=== PATIENT | male | born 1940 | race Caucasian/White ===

== ENCOUNTER → 2017-08-07 14:42 | Outpatient (CLI) | payer MEDICARE, SELFPAY ==
--- NOTE | 2017-08-07 | DI.RAD.S_ITS ---
PROCEDURE: XR CHEST 2V INDICATIONS: PNEUMONIA TECHNIQUE: 2 views of the chest were acquired. COMPARISON: None. FINDINGS: Surgical changes and devices: None. Lungs and pleura: No pleural effusions or pneumothorax. Increased right perihilar consolidative opacities are present. Patchy left basilar retrocardiac opacities. Mediastinum: Mediastinal contours are normal. Heart size is normal. Bones and chest wall: No suspicious bony abnormalities. Soft tissues appear unremarkable. IMPRESSION: Right perihilar pneumonia. Additional patchy opacities in the left lung base. Recommend radiographic followup to document resolution after treatment and to exclude hilar lymphadenopathy/neoplasm Dictated by: Rod Queen M.D. on 08/07/2017 at 15:29 Approved by: Rod Queen M.D. on 08/07/2017 at 15:31
== END ==
PROVIDERS: Visit Provider Nurse Practitioner Family
DX: J18.9 Pneumonia, unspecified organism (principal)
CPT/HCPCS: 71046

== ENCOUNTER → 2017-08-14 13:46 | Outpatient (CLI) | payer MEDICARE, SELFPAY ==
--- NOTE | 2017-08-14 | DI.RAD.S_ITS ---
PROCEDURE: XR CHEST 2V INDICATIONS: 77-year-old male with pneumonia. TECHNIQUE: 2 views of the chest were acquired. COMPARISON: [facility], CR, XR CHEST 2V, 08/07/2017, 14:34. FINDINGS: Surgical changes and devices: None. Lungs and pleura: No pleural effusions or pneumothorax. There is persistent airspace opacity involving the superior segment of the right lower lobe. Left lung remains clear. Mediastinum: Mediastinal contours are normal. Heart size is normal. Bones and chest wall: No suspicious bony abnormalities. Soft tissues appear unremarkable. IMPRESSION: Findings consistent with persistent pneumonia involving the superior segment of the right lower lobe. If this finding does not resolve on short-term followup chest radiographs, consider further evaluation with contrast-enhanced chest CT to evaluate for underlying lung or hilar mass. Dictated by: Nirav Bonilla M.D. on 08/14/2017 at 14:12 Approved by: Nirav Bonilla M.D. on 08/14/2017 at 14:15
== END ==
PROVIDERS: Visit Provider Nurse Practitioner Family
DX: J18.9 Pneumonia, unspecified organism (principal)
CPT/HCPCS: 71046

== ENCOUNTER → 2017-08-28 11:35 | Outpatient (CLI) | payer MEDICARE, SELFPAY ==
--- NOTE | 2017-08-28 | DI.RAD.S_ITS ---
PROCEDURE: XR CHEST 2V INDICATIONS: 77-year-old male with pneumonia symptoms after antibiotics. TECHNIQUE: 2 views of the chest were acquired. COMPARISON: [facility], CR, XR CHEST 2V, 08/14/2017, 13:37. [facility], CR, XR CHEST 2V, 08/07/2017, 14:34. FINDINGS: Surgical changes and devices: None. Lungs and pleura: No pleural effusions or pneumothorax. Asymmetric right perihilar opacity persists, as well as opacity involving the superior segment of the right lower lobe. Left lung remains clear. Mediastinum: Mediastinal contours are normal. Heart size is normal. Bones and chest wall: No suspicious bony abnormalities. Soft tissues appear unremarkable. IMPRESSION: Radiographic abnormalities involving the right perihilar region and superior segment of the right lower lobe have not yet completely resolved. As such, underlying neoplasm is a possibility, as well as residual pneumonia. Dictated by: Nirav Bonilla M.D. on 08/28/2017 at 12:02 Approved by: Nirav Bonilla M.D. on 08/28/2017 at 12:04
== END ==
PROVIDERS: Visit Provider Nurse Practitioner Family
DX: J15.9 Unspecified bacterial pneumonia (principal)
CPT/HCPCS: 71046

== ENCOUNTER → 2018-02-02 14:37 | Outpatient (CLI) | payer MEDICARE, SELFPAY ==
--- NOTE | 2018-02-02 | DI.RAD.S_ITS ---
PROCEDURE: XR CHEST 2V INDICATIONS: PNEUMONIA TECHNIQUE: 2 views of the chest were acquired. COMPARISON: [facility], CR, XR CHEST 2V, 08/07/2017, 14:34. [facility], CR, XR CHEST 2V, 08/14/2017, 13:37. [facility], CR, XR CHEST 2V, 08/28/2017, 11:25. FINDINGS: Surgical changes and devices: None. Lungs and pleura: No pleural effusions or pneumothorax. Abnormal suprahilar density can be seen on the right, which is not significantly changed compared to the prior chest radiograph dated 08/28/17. No focal infiltrates are seen. Mediastinum: Mediastinal contours are normal. Heart size is normal. Bones and chest wall: No suspicious bony abnormalities. Soft tissues appear unremarkable. IMPRESSION: The persistence of the right suprahilar opacity is highly worrisome for neoplasm. Please consider a dedicated chest CT with contrast for further evaluation Dictated by: Pepito Mack M.D. on 02/02/2018 at 16:03 Approved by: Pepito Mack M.D. on 02/02/2018 at 16:05
== END ==
PROVIDERS: Visit Provider Nurse Practitioner Family
DX: J18.9 Pneumonia, unspecified organism (principal)
CPT/HCPCS: 71046

== ENCOUNTER 2018-03-05 12:55 | Emergency (ER) | payer MEDICARE, SELFPAY ==
[2018-03-05] VITALS (14 sets, daily range): BP systolic 131–152; BP diastolic 71–94; PULSE 100–124; RESP 13–23; TEMP 36.5–36.8; O2SAT 96–100
--- NOTE | 2018-03-05 13:00 | ED.LOWEXIN ---
HPI - Extremity Injury (Lower) <TESSY Flores - Last Filed: 03/05/18 22:31> General Chief Complaint: Extremity Injury, Lower Stated Complaint: Hip/Leg Pain Time Seen by Provider: 03/05/18 13:00 Source: patient Mode of arrival: EMS Limitations: no limitations History of Present Illness HPI Narrative: 78-year-old male with history of hypertension and osteoarthritis that is a nonsmoker here for complaint of pain into his room left hip area over the past couple of days. He reports he has had pain and on and off over the past several weeks. Pain got so worse today that he could not get out of bed. He was brought in by ambulance due to him not being able to get out of bed. He denies any falls. He denies any trauma to the left hip area. Reports increased pain with motion of the left hip area. He has been treated for pain into his left knee area by Orthopedics he reports that he recently received a cortisone shot to his left knee several weeks ago and this has helped his knee pain. He denies any fevers or chills. He denies any other current concerns or complaints at this timeframe. Related Data Home Medications Medication Instructions Recorded Confirmed allopurinol 100 mg PO DAILY 03/05/18 03/05/18 atenolol 50 mg PO DAILY 03/05/18 03/05/18 calcitriol 0.25 mcg PO DAILY 03/05/18 03/05/18 levothyroxine [Synthroid] 75 mcg PO DAILY 03/05/18 03/05/18 potassium chloride 20 meq PO DAILY 03/05/18 03/05/18 Allergies Allergy/AdvReac Type Severity Reaction Status Date / Time No Known Drug Allergies Allergy Verified 03/05/18 15:58 Review of Systems <TESSY Flores - Last Filed: 03/05/18 22:31> Constitutional Denies chills, Denies fever(s), Denies lethargy and Denies weakness Eyes Denies change in vision, Denies eye discharge, Denies irritation and Denies loss of vision ENT Ears, Nose, Mouth, and Throat: Denies change in voice, Denies neck pain and Denies sore throat Cardiovascular Denies chest pain, Denies irregular heart rhythm, Denies lightheadedness, Denies palpitations, Denies dyspnea, Denies dyspnea on exertion and Denies orthopnea Respiratory Denies cough, Denies dyspnea, Denies dyspnea on exertion and Denies wheezing Gastrointestinal Gastrointestinal: Denies abdominal pain, Denies change in bowel habits, Denies diarrhea, Denies nausea and Denies vomiting Genitourinary Denies hematuria, Denies flank pain, Denies urinary incontinence and Denies urinary urgency Musculoskeletal Denies neck pain Comments: Left hip pain Integumentary/Breasts Denies pruritus, Denies erythema, Denies rash and Denies wounds Neurologic Denies confusion, Denies loss of vision and Denies weakness Psychiatric Denies anxiety, Denies confusion, Denies depression, Denies homicidal ideation and Denies suicidal ideation Endocrine Denies palpitations Hematologic/Lymphatic Denies easy bruising Allergic/Immunologic Denies wheezing Exam <TESSY Flores - Last Filed: 03/05/18 22:31> Initial Vital Signs Initial Vital Signs: Vital Signs Temperature 97.7 F 03/05/18 13:03 Pulse Rate 122 H 03/05/18 13:03 Respiratory Rate 20 03/05/18 13:03 Blood Pressure 146/94 H 03/05/18 13:03 Pulse Oximetry 98 03/05/18 13:03 Const General: cooperative and well developed Nutritional Appearance: well nourished Orientation: alert, awake, oriented x3 and not confused [facility] Mouth: oral mucosae normal, oropharynx normal and No moist mucous membranes Eyes Conjunctivae: conjunctivae normal Sclera: sclerae normal Pupils: PERRL EOM: EOM intact bilaterally Resp Effort & Inspection: normal respiratory effort, able to speak in complete sentences, no respiratory distress and no use of accessory muscles Auscultation: clear to auscultation bilaterally, no rales, no rhonchi and no wheezes Cardio Rate: regular rate Rhythm: regular rhythm Heart Sounds: no click, no gallops, no murmurs and no rubs Pulses: normal peripheral pulses GI Inspection: non-distended Palpation: soft, no hepatosplenomegaly, No guarding, No pulsatile mass and No tender Auscultation: normal bowel sounds Skin General: no rashes or lesions noted, No jaundice and No petechiae Neuro General: alert, oriented x3, gait normal and no focal motor deficits Speech: speech normal Extrem Other: Left hip area with no signs of trauma. No ecchymosis. No swelling. Distal sensation is intact. Distal range of motion is intact. Distal pulses are intact. <Maryjo Levy DO - Last Filed: 03/06/18 17:09> Initial Vital Signs Initial Vital Signs: Vital Signs Temperature 97.7 F 03/05/18 13:03 Pulse Rate 122 H 03/05/18 13:03 Respiratory Rate 20 03/05/18 13:03 Blood Pressure 146/94 H 03/05/18 13:03 Pulse Oximetry 98 03/05/18 13:03 Course <TESSY Flores - Last Filed: 03/05/18 22:31> Orders Ordered: Discontinued Medications Hydromorphone HCl (Dilaudid) 1 mg IV NOW ONE Stop: 03/05/18 14:51 Last Admin: 03/05/18 14:56 Dose: 1 mg Hydromorphone HCl (Dilaudid) 0.5 mg IV NOW ONE Stop: 03/05/18 17:12 Last Admin: 03/05/18 17:16 Dose: 0.5 mg Hydromorphone HCl (Dilaudid) 0.5 mg IV NOW ONE Stop: 03/05/18 19:48 Last Admin: 03/05/18 19:58 Dose: 0.5 mg Hydromorphone HCl (Dilaudid) 0.5 mg IV NOW ONE Stop: 03/05/18 22:45 Last Admin: 03/05/18 23:22 Dose: 0.5 mg Sodium Chloride (Normal Saline 0.9%) 1,000 mls @ 1,000 mls/hr IV BOLUS ONE Stop: 03/05/18 14:16 Last Infusion: 03/05/18 15:32 Dose: 0 mls/hr Admin: 03/05/18 14:10 Dose: 1,000 mls/hr Sodium Chloride (Normal Saline 0.9%) 1,000 mls @ 1,000 mls/hr IV BOLUS ONE Stop: 03/05/18 16:55 Last Infusion: 03/05/18 17:35 Dose: 0 mls/hr Admin: 03/05/18 15:57 Dose: 1,000 mls/hr Sodium Chloride (Normal Saline 0.9%) 1,000 mls @ 100 mls/hr IV CONT KELSEY Last Infusion: 03/05/18 23:40 Dose: 100 mls/hr Admin: 03/05/18 20:15 Dose: 100 mls/hr Sodium Chloride (Normal Saline 0.9%) 1,000 mls @ 100 mls/hr IV CONT KELSEY Last Admin: 03/05/18 22:46 Dose: Vital Signs - 8 hr 03/05/18 14:30 03/05/18 15:11 03/05/18 15:36 Pulse Rate 105 H 106 H 108 H Respiratory Rate 13 14 23 Blood Pressure [Right Arm] 151/84 H 152/82 H 139/76 Pulse Oximetry 100 96 96 03/05/18 16:54 03/05/18 17:39 03/05/18 18:00 Pulse Rate 110 H 115 H 115 H Respiratory Rate 17 18 17 Blood Pressure [Right Arm] 149/81 H 131/71 146/94 H Pulse Oximetry 100 98 99 03/05/18 19:37 03/05/18 20:41 03/05/18 21:35 Pulse Rate 116 H 120 H 117 H Respiratory Rate 18 17 16 Blood Pressure [Right Arm] 151/89 H 148/91 H 144/92 H Pulse Oximetry 98 98 98 <Maryjo Levy, - Last Filed: 03/06/18 17:09> Orders Ordered: Discontinued Medications Hydromorphone HCl (Dilaudid) 1 mg IV NOW ONE Stop: 03/05/18 14:51 Last Admin: 03/05/18 14:56 Dose: 1 mg Hydromorphone HCl (Dilaudid) 0.5 mg IV NOW ONE Stop: 03/05/18 17:12 Last Admin: 03/05/18 17:16 Dose: 0.5 mg Hydromorphone HCl (Dilaudid) 0.5 mg IV NOW ONE Stop: 03/05/18 19:48 Last Admin: 03/05/18 19:58 Dose: 0.5 mg Hydromorphone HCl (Dilaudid) 0.5 mg IV NOW ONE Stop: 03/05/18 22:45 Last Admin: 03/05/18 23:22 Dose: 0.5 mg Sodium Chloride (Normal Saline 0.9%) 1,000 mls @ 1,000 mls/hr IV BOLUS ONE Stop: 03/05/18 14:16 Last Infusion: 03/05/18 15:32 Dose: 0 mls/hr Admin: 03/05/18 14:10 Dose: 1,000 mls/hr Sodium Chloride (Normal Saline 0.9%) 1,000 mls @ 1,000 mls/hr IV BOLUS ONE Stop: 03/05/18 16:55 Last Infusion: 03/05/18 17:35 Dose: 0 mls/hr Admin: 03/05/18 15:57 Dose: 1,000 mls/hr Sodium Chloride (Normal Saline 0.9%) 1,000 mls @ 100 mls/hr IV CONT KELSEY Last Infusion: 03/05/18 23:40 Dose: 100 mls/hr Admin: 03/05/18 20:15 Dose: 100 mls/hr Sodium Chloride (Normal Saline 0.9%) 1,000 mls @ 100 mls/hr IV CONT KELSEY Last Admin: 03/05/18 22:46 Dose: Vital Signs - 8 hr 03/05/18 14:30 03/05/18 15:11 03/05/18 15:36 Pulse Rate 105 H 106 H 108 H Respiratory Rate 13 14 23 Blood Pressure [Right Arm] 151/84 H 152/82 H 139/76 Pulse Oximetry 100 96 96 03/05/18 16:54 03/05/18 17:39 03/05/18 18:00 Pulse Rate 110 H 115 H 115 H Respiratory Rate 17 18 17 Blood Pressure [Right Arm] 149/81 H 131/71 146/94 H Pulse Oximetry 100 98 99 03/05/18 19:37 03/05/18 20:41 03/05/18 21:35 Pulse Rate 116 H 120 H 117 H Respiratory Rate 18 17 16 Blood Pressure [Right Arm] 151/89 H 148/91 H 144/92 H Pulse Oximetry 98 98 98 MDM - Extremity Injury (Lower) <TESSY Flores - Last Filed: 03/05/18 22:31> Lab Data Result diagrams: 03/05/18 15:27 03/05/18 15:27 Lab Results 03/05/18 03/05/18 03/05/18 Range/Units 15:27 15:27 15:27 WBC 18.3 H (4.5-11.0) X10^3/uL RBC 4.21 L (4.5-5.9) X10^6/uL Hgb 12.8 L (13.5-17.5) g/dL Hct 37.4 L (41-53) % MCV 88.7 (80-100) fL MCH 30.5 (26-34) PG MCHC 34.4 (30-36) % RDW 14.3 (11.6-14.8) % Plt Count 378 (150-400) X10^3/uL Neut % (Auto) 92.5 H (50-75) % Lymph % (Auto) 2.8 L (25-40) % Lasalle % (Auto) 4.1 (3-14) % Eos % (Auto) 0.4 L (2-4) % Baso % (Auto) 0.2 (0-2) % Neut # (Auto) 69579 H (3920-7949) /uL ESR 74 H (0-15) MM/HR Sodium 139 (137-145) mmol/L Potassium 3.9 (3.4-5.1) mmol/L Chloride 101 (98-107) mmol/L Carbon Dioxide 24 (22-32) mmol/L BUN 23 H (9-20) mg/dL Creatinine 1.50 H (0.66-1.25) mg/dL Estimated GFR 45.4 L (>60) mL/min BUN/Creatinine Ratio 15.3 (6-22) Glucose 140 H (80-110) mg/dL Lactate (0.7-2.1) mmol/L Uric Acid 5.4 (3.5-8.5) mg/dL Calcium 10.0 (8.4-10.2) mg/dL Total Bilirubin 0.8 (0.2-1.3) mg/dL AST 20 (17-59) IU/L ALT 22 (21-72) IU/L Alkaline Phosphatase 64 (38-126) U/L C-Reactive Protein 6.4 H (<1.0) mg/dL Total Protein 6.3 (6.3-8.2) g/dL Albumin 3.3 L (3.5-5.0) g/dL Globulin 3.0 (1.7-4.1) g/dL Albumin/Globulin Ratio 1.1 (1.0-2.8) Procalcitonin 0.17 (<0.5) ng/mL 03/05/18 Range/Units 15:27 WBC (4.5-11.0) X10^3/uL RBC (4.5-5.9) X10^6/uL Hgb (13.5-17.5) g/dL Hct (41-53) % MCV (80-100) fL MCH (26-34) PG MCHC (30-36) % RDW (11.6-14.8) % Plt Count (150-400) X10^3/uL Neut % (Auto) (50-75) % Lymph % (Auto) (25-40) % Lasalle % (Auto) (3-14) % Eos % (Auto) (2-4) % Baso % (Auto) (0-2) % Neut # (Auto) (1319-2929) /uL ESR (0-15) MM/HR Sodium (137-145) mmol/L Potassium (3.4-5.1) mmol/L Chloride (98-107) mmol/L Carbon Dioxide (22-32) mmol/L BUN (9-20) mg/dL Creatinine (0.66-1.25) mg/dL Estimated GFR (>60) mL/min BUN/Creatinine Ratio (6-22) Glucose (80-110) mg/dL Lactate 1.1 (0.7-2.1) mmol/L Uric Acid (3.5-8.5) mg/dL Calcium (8.4-10.2) mg/dL Total Bilirubin (0.2-1.3) mg/dL AST (17-59) IU/L ALT (21-72) IU/L Alkaline Phosphatase (38-126) U/L C-Reactive Protein (<1.0) mg/dL Total Protein (6.3-8.2) g/dL Albumin (3.5-5.0) g/dL Globulin (1.7-4.1) g/dL Albumin/Globulin Ratio (1.0-2.8) Procalcitonin (<0.5) ng/mL Imaging Data Left hip x-ray : Radiologist's impression: [address] [address] XRay Report Signed Patient: Avtar Walters MR#: [id number] : 1940 Acct:[id number] Age/Sex: 78 / M Date of Service: 03/05/18 Loc: ED Accession Number: [id number] Procedure: XR hip w pel if done LT 2V Ordering Provider: Candido Vazquez PROCEDURE: XR HIP W PEL IF DONE LT 2V INDICATIONS: LEFT HIP AND LEG PAIN TECHNIQUE: AP pelvis with lateral view(s) of the left hip(s). COMPARISON: None. FINDINGS: Bones: Moderate to severe bilateral hip joint osteoarthritic changes are seen. Left hip is internally rotated, which obscures the evaluation of left femoral neck. No definite displaced fractures or dislocations. Pelvic ring appears intact. No suspicious bony lesions. Soft tissues: The visualized bowel gas pattern is normal. No suspicious soft tissue calcifications. IMPRESSION: Slightly limited evaluation of left femoral neck due to to internal hip rotation. Moderate bilateral hip joint osteoarthritis. No definite fracture is seen. If clinically indicated, CT of left hip can be done for further evaluation. Dictated by: Jun Snyder M.D. on 03/05/2018 at 13:51 Approved by: Jun Snyder M.D. on 03/05/2018 at 13:52 Venous US: Radiologist's impression: [place] [address] Ultrasound Report Signed Patient: Avtar Walters MR#: [id number] : 1940 Acct:[id number] Age/Sex: 78 / M Date of Service: 03/05/18 Loc: ED Accession Number: [id number] Procedure: US periph venous low extrem lt Ordering Provider: Candido Vazquez PROCEDURE: US PERIPH VENOUS LOW EXTREM LT INDICATIONS: PAIN TECHNIQUE: Real-time imaging, as well as color and pulse Doppler interrogation, were performed of the lower extremity deep veins from the inguinal ligament to the popliteal fossa. COMPARISON: None. FINDINGS: The deep veins are normally compressible, and free of intraluminal thrombus. Color and pulse Doppler demonstrate normal phasic intraluminal flow. There is normal augmentation response to distal compression maneuver. There appears to be calcification along the posterior aspect of the left knee, which probably represents a joint body within a Noonan cyst. IMPRESSION: 1. No evidence of deep vein thrombosis involving the left lower extremity. 2. 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 Dictated by: Pola Moore M.D. on 03/05/2018 at 13:11 Approved by: Pola Moore M.D. on 03/05/2018 at 13:13 CT scan - pelvis: Radiologist's impression: [address] [address] [address] Scan Report Signed Patient: Avtar Walters MR#: [id number] : 1940 Acct:[id number] Age/Sex: 78 / M Date of Service: 03/05/18 Loc: ED Accession Number: [id number] Procedure: CT pelvis wo con Ordering Provider: Candido Vazquez PROCEDURE: CT PEL WO CON INDICATIONS: Left thigh left hip pain TECHNIQUE: Noncontrast 3 mm axial sections acquired through the bony pelvis, with coronal and sagittal reformatting. COMPARISON: None. FINDINGS: Image quality: Excellent. Bones: There is an acute-appearing nondisplaced fracture through distal left femoral neck with fracture line extending to involve lesser trochanter. Multiple area of well-circumscribed radiolucency is seen scattered in left femoral neck and proximal left femoral shaft with the largest area measures 3.6 x 3 x 4.9 cm in its largest AP, transverse, and craniocaudal dimensions involving inferior aspect of left femoral neck/intertrochanteric region. Finding is suspicious for pathologic fracture involving left femoral neck. Osteoarthritic changes are noted in bilateral hip joints. No other area of suspicious bony lesion is seen. No evidence of avascular necrosis of femoral head. Bilateral sacroiliac joint osteophytic changes also seen. Soft tissues: Soft tissue swelling around left femoral neck fracture site is noted. No significant joint effusion is seen. No gross left hip muscle or tendon abnormality is noted. Enlarged prostate gland is noted with mass effect on floor of urinary bladder. Small bilateral bladder wall diverticuli are seen. No discrete bladder wall mass. There is no pelvic free fluid or free air. No abnormal bowel wall thickening. No pelvic adenopathy. IMPRESSION: 1. Suggestion of a nondisplaced pathologic fracture through distal left femoral neck with multiple lytic lesions scattered in left femoral neck and proximal femoral shaft. 2. Osteoarthritic changes in bilateral hip joints and sacroiliac joints. No evidence of avascular necrosis. 3. 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 Dictated by: Jun Snyder M.D. on 03/05/2018 at 15:14 Approved by: Jun Snyder M.D. on 03/05/2018 at 15:27 CT scan - chest: Radiologist's impression: [address] [place] [address] [id number] [address] Scan Report Signed Patient: Avtar Walters MR#: [id number] : 1940 Acct:[id number] Age/Sex: 78 / M Date of Service: 03/05/18 Loc: ED Accession Number: [id number] Procedure: CT chest abdomen w con Ordering Provider: Candido Vazquez PROCEDURE: CT CHEST ABDOMEN W CON INDICATIONS: Findings suspicious for tumor to the left hip area on CT TECHNIQUE: After the administration of intravenous contrast, 5 mm thick sections acquired from the lung apices to the iliac crests. 5 mm coronal and sagittal reformats were performed, with additional 7 mm coronal MIP reformats through the lungs. For radiation dose reduction, the following was used: automated exposure control, adjustment of mA and/or kV according to patient size. COMPARISON: [facility], CT, CT PEL WO CON, 03/05/2018, 14:49. [facility], CR, XR HIP W PEL IF DONE LT 2V, 03/05/2018, 13:27. FINDINGS: Image quality: Excellent. CHEST: Lungs and pleura: A there is a large malignant appearing mass at the right perihilar lung parenchyma, a measuring up to 3.6 cm AP and 4.8 cm transverse, with direct invasion by tumor into the posterior mediastinum at the subcarinal space, and encasing the right mainstem bronchus and narrowing the bronchus, producing irregularity along the bronchial margin suspicious for endobronchial invasion. There is a cavitary appearance to the central portion of the mass where a small central air-filled space does not appear to communicate with the adjacent bronchi. No left-sided pleural effusions or pneumothorax bilaterally but there is a exudative appearing right pleural effusion showing a subtle pattern of rim enhancement and thickening, [id number] in overall size. There are at least 2 and possibly 3 malignant appearing left lower lung lesions, the largest of which is seen on series 2 image 44 at the posterolateral left lower lobe measuring slightly over 1 cm. This has spiculations.. Central and peripheral airways appear patent and normal in caliber. Mediastinum: Heart size is normal. No pericardial effusion. No mediastinal or hilar adenopathy by size criteria. Thoracic aorta and central pulmonary arteries are normal in size. Esophagus is normal in caliber. No hiatal hernia. Chest wall: No axillary or supraclavicular adenopathy by size criteria. Thyroid gland appears normal by CT criteria. ABDOMEN: Solid organs: Liver is normal in size and enhancement. Gallbladder appears free of inflammation but contains densely calcified dependent layering gallstones. Biliary system is non dilated. Pancreas enhances normally. Spleen is normal in size and enhancement. No adrenal nodules. Kidneys demonstrate normal size and enhancement, but with bilateral moderately severe hydronephrosis and hydroureter extending to the bladder level. Peritoneum and bowel: Bowel loops demonstrate normal wall thickness and caliber. No free fluid or air. Nodes and vessels: No retroperitoneal or mesenteric adenopathy by size criteria. Aorta and inferior vena cava are normal in size. Bones: No suspicious bony lesions. No vertebral body compression fractures. Miscellaneous: No ventral hernias. IMPRESSION: 1. 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 A bronchoscopic biopsy may be the appropriate next step, however the pleural effusion present appears slightly exudative and thoracentesis for cytology may be warranted initially. Suspect at least 2 pulmonary metastatic lesions are present on the left at the lung base. 2. The patient has a malignant appearing metastatic lesion involving the left hip. Within the axial and appendicular skeleton of the visualized chest and abdomen no additional osseous metastatic disease is seen. Nuclear medicine bone scan is recommended, however, for more accurate assessment and staging purposes. 3. Unusual pattern of prominent hydronephrosis and hydroureter extending without identifiable mass as the underlying cause into the bladder. Chronic bladder outlet obstruction may explain this appearance. Dictated by: Lisandro Lopez M.D. on 03/05/2018 at 20:55 Approved by: Lisandro Lopez M.D. on 03/05/2018 at 21:07 MDM Narrative Medical decision making narrative: CBC shows elevated white count. CRP and ESR are also elevated. Ultrasound of the left lower extremity was obtained and was negative for any blood clot. X-ray of the left hip was obtained and was inconclusive for a possible femoral neck fracture. Patient's heart rate was elevated while in the emergency room today. After some fluids his heart rate normalized some however still remained tachycardic. CT of the pelvis eversion was obtained and shows findings consistent with malignancy to the left hip area with a lesion seen to the left hip region and a pathological fracture to the left femoral neck. Discussed case with Orthopedics who recommend transfer of patient to larger hospital with Oncology available with Orthopedics for for further treatment and evaluation. CT of the abdomen and chest was obtained and shows areas to the Pulmonary regions with lesions that appear to be metastatic to pulmonary area. CT abdomen pelvis also shows some hydronephrosis and hydroureter however no metastatic disease is seen to the renal/ bladder area discussed case with hospitalist and Orthopedics at [facility] Dr. Holguin and Dr. Herrera who accepted patient. Patient is transferred to [facility] via ALS. <Maryjo Levy, DO - Last Filed: 03/06/18 17:09> Lab Data Lab Results 03/05/18 03/05/18 03/05/18 Range/Units 15:27 15:27 15:27 WBC 18.3 H (4.5-11.0) X10^3/uL RBC 4.21 L (4.5-5.9) X10^6/uL Hgb 12.8 L (13.5-17.5) g/dL Hct 37.4 L (41-53) % MCV 88.7 (80-100) fL MCH 30.5 (26-34) PG MCHC 34.4 (30-36) % RDW 14.3 (11.6-14.8) % Plt Count 378 (150-400) X10^3/uL Neut % (Auto) 92.5 H (50-75) % Lymph % (Auto) 2.8 L (25-40) % Lasalle % (Auto) 4.1 (3-14) % Eos % (Auto) 0.4 L (2-4) % Baso % (Auto) 0.2 (0-2) % Neut # (Auto) 46307 H (9484-0199) /uL ESR 74 H (0-15) MM/HR Sodium 139 (137-145) mmol/L Potassium 3.9 (3.4-5.1) mmol/L Chloride 101 (98-107) mmol/L Carbon Dioxide 24 (22-32) mmol/L BUN 23 H (9-20) mg/dL Creatinine 1.50 H (0.66-1.25) mg/dL Estimated GFR 45.4 L (>60) mL/min BUN/Creatinine Ratio 15.3 (6-22) Glucose 140 H (80-110) mg/dL Lactate (0.7-2.1) mmol/L Uric Acid 5.4 (3.5-8.5) mg/dL Calcium 10.0 (8.4-10.2) mg/dL Total Bilirubin 0.8 (0.2-1.3) mg/dL AST 20 (17-59) IU/L ALT 22 (21-72) IU/L Alkaline Phosphatase 64 (38-126) U/L C-Reactive Protein 6.4 H (<1.0) mg/dL Total Protein 6.3 (6.3-8.2) g/dL Albumin 3.3 L (3.5-5.0) g/dL Globulin 3.0 (1.7-4.1) g/dL Albumin/Globulin Ratio 1.1 (1.0-2.8) Procalcitonin 0.17 (<0.5) ng/mL 03/05/ Range/Units 15:27 WBC (4.5-11.0) X10^3/uL RBC (4.5-5.9) X10^6/uL Hgb (13.5-17.5) g/dL Hct (41-53) % MCV (80-100) fL MCH (26-34) PG MCHC (30-36) % RDW (11.6-14.8) % Plt Count (150-400) X10^3/uL Neut % (Auto) (50-75) % Lymph % (Auto) (25-40) % Lasalle % (Auto) (3-14) % Eos % (Auto) (2-4) % Baso % (Auto) (0-2) % Neut # (Auto) (1024-0136) /uL ESR (0-15) MM/HR Sodium (137-145) mmol/L Potassium (3.4-5.1) mmol/L Chloride (98-107) mmol/L Carbon Dioxide (22-32) mmol/L BUN (9-20) mg/dL Creatinine (0.66-1.25) mg/dL Estimated GFR (>60) mL/min BUN/Creatinine Ratio (6-22) Glucose (80-110) mg/dL Lactate 1.1 (0.7-2.1) mmol/L Uric Acid (3.5-8.5) mg/dL Calcium (8.4-10.2) mg/dL Total Bilirubin (0.2-1.3) mg/dL AST (17-59) IU/L ALT (21-72) IU/L Alkaline Phosphatase (38-126) U/L C-Reactive Protein (<1.0) mg/dL Total Protein (6.3-8.2) g/dL Albumin (3.5-5.0) g/dL Globulin (1.7-4.1) g/dL Albumin/Globulin Ratio (1.0-2.8) Procalcitonin (<0.5) ng/mL Discharge Plan Departure Patient Disposition: [facility] Clinical Impression: Pathologic fracture of femoral neck Discharge Date/Time: 03/05/18 23:42 Interventions: ED Discharge Assessment Last Done: 03/05/18 23:41 Prescriptions: No Action allopurinol 100 mg Tablet 100 mg PO DAILY RF: 0 levothyroxine [Synthroid] 75 mcg Tablet 75 mcg PO DAILY RF: 0 calcitriol 0.25 mcg Capsule 0.25 mcg PO DAILY RF: 0 potassium chloride 20 mEq Tablet Extended Release 20 meq PO DAILY RF: 0 atenolol 50 mg Tablet 50 mg PO DAILY RF: 0 <Maryjo Levy DO - Last Filed: 03/06/18 17:09> Cosign ED Attending Cosignature Attestation: I was immediately available in the department for consultation, case was discussed, orthopedic recommendations and plan for transfer. This documentation has been reviewed and I agree with assessment and plan. Supervised by Maryjo Levy DO
--- NOTE | 2018-03-05 13:17 | DI.RAD.S_ITS ---
PROCEDURE: XR HIP W PEL IF DONE LT 2V INDICATIONS: LEFT HIP AND LEG PAIN TECHNIQUE: AP pelvis with lateral view(s) of the left hip(s). COMPARISON: None. FINDINGS: Bones: Moderate to severe bilateral hip joint osteoarthritic changes are seen. Left hip is internally rotated, which obscures the evaluation of left femoral neck. No definite displaced fractures or dislocations. Pelvic ring appears intact. No suspicious bony lesions. Soft tissues: The visualized bowel gas pattern is normal. No suspicious soft tissue calcifications. IMPRESSION: Slightly limited evaluation of left femoral neck due to to internal hip rotation. Moderate bilateral hip joint osteoarthritis. No definite fracture is seen. If clinically indicated, CT of left hip can be done for further evaluation. Dictated by: Jun Snyder M.D. on 03/05/2018 at 13:51 Approved by: Jun Snyder M.D. on 03/05/2018 at 13:52
--- NOTE | 2018-03-05 13:17 | DI.US.S_ITS ---
PROCEDURE: US PERIPH VENOUS LOW EXTREM LT INDICATIONS: PAIN TECHNIQUE: Real-time imaging, as well as color and pulse Doppler interrogation, were performed of the lower extremity deep veins from the inguinal ligament to the popliteal fossa. COMPARISON: None. FINDINGS: The deep veins are normally compressible, and free of intraluminal thrombus. Color and pulse Doppler demonstrate normal phasic intraluminal flow. There is normal augmentation response to distal compression maneuver. There appears to be calcification along the posterior aspect of the left knee, which probably represents a joint body within a Noonan cyst. IMPRESSION: 1. No evidence of deep vein thrombosis involving the left lower extremity. 2. 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 Dictated by: Pola Moore M.D. on 03/05/2018 at 13:11 Approved by: Pola Moore M.D. on 03/05/2018 at 13:13
[2018-03-05] MEDS: SODIUM CHLORIDE 0.9% 1,000 ML 1000 ML IV ×2 (14:10→15:57)
--- NOTE | 2018-03-05 14:50 | DI.CT.S_ITS ---
PROCEDURE: CT PEL WO CON INDICATIONS: Left thigh left hip pain TECHNIQUE: Noncontrast 3 mm axial sections acquired through the bony pelvis, with coronal and sagittal reformatting. COMPARISON: None. FINDINGS: Image quality: Excellent. Bones: There is an acute-appearing nondisplaced fracture through distal left femoral neck with fracture line extending to involve lesser trochanter. Multiple area of well-circumscribed radiolucency is seen scattered in left femoral neck and proximal left femoral shaft with the largest area measures 3.6 x 3 x 4.9 cm in its largest AP, transverse, and craniocaudal dimensions involving inferior aspect of left femoral neck/intertrochanteric region. Finding is suspicious for pathologic fracture involving left femoral neck. Osteoarthritic changes are noted in bilateral hip joints. No other area of suspicious bony lesion is seen. No evidence of avascular necrosis of femoral head. Bilateral sacroiliac joint osteophytic changes also seen. Soft tissues: Soft tissue swelling around left femoral neck fracture site is noted. No significant joint effusion is seen. No gross left hip muscle or tendon abnormality is noted. Enlarged prostate gland is noted with mass effect on floor of urinary bladder. Small bilateral bladder wall diverticuli are seen. No discrete bladder wall mass. There is no pelvic free fluid or free air. No abnormal bowel wall thickening. No pelvic adenopathy. IMPRESSION: 1. Suggestion of a nondisplaced pathologic fracture through distal left femoral neck with multiple lytic lesions scattered in left femoral neck and proximal femoral shaft. 2. Osteoarthritic changes in bilateral hip joints and sacroiliac joints. No evidence of avascular necrosis. 3. 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 Dictated by: Jun Snyder M.D. on 03/05/2018 at 15:14 Approved by: Jun Snyder M.D. on 03/05/2018 at 15:27
[2018-03-05] MEDS: HYDROMORPHONE 1 MG INJ IV (14:56)
[2018-03-05 15:39] LABS: Add Manual Diff / Slide Review NO; Basophils Percent Auto 0.2 % (0-2); Eosinophils Percent Auto 0.4 % (2-4); Hematocrit 37.4 % (41-53); Hemoglobin 12.8 g/dL (13.5-17.5); Lymphocytes Percent Auto 2.8 % (25-40); Mean Corpuscular HGB Conc 34.4 % (30-36); Mean Corpuscular Hemoglobin 30.5 PG (26-34); Mean Corpuscular Volume 88.7 fL (80-100); Monocytes Percent Auto 4.1 % (3-14); Neutrophils Absolute Auto 16900 /uL (1500-7000); Neutrophils Percent Auto 92.5 % (50-75); Platelet Count 378 X10^3/uL (150-400); Red Blood Cell Count 4.21 X10^6/uL (4.5-5.9); Red Cell Distribution Width 14.3 % (11.6-14.8); White Blood Cell Count 18.3 X10^3/uL (4.5-11.0)
[2018-03-05 15:48] LABS: Lactate (Lactic Acid) 1.1 mmol/L (0.7-2.1)
[2018-03-05 15:52] LABS: Alanine Aminotransferase 22 IU/L (21-72); Albumin 3.3 g/dL (3.5-5.0); Albumin Globulin Ratio 1.1 (1.0-2.8); Alkaline Phosphatase 64 U/L (38-126); Aspartate Aminotransferase 20 IU/L (17-59); BUN Creatinine Ratio 15.3 (6-22); Bilirubin Total 0.8 mg/dL (0.2-1.3); Blood Urea Nitrogen 23 mg/dL (9-20); C-Reactive Protein Quant 6.4 mg/dL (<1.0); Carbon Dioxide 24 mmol/L (22-32); Chloride 101 mmol/L (98-107); Estimated Glomerular Filt Rate 45.4 mL/min (>60); Glucose 140 mg/dL (80-110); HEMOLYSIS < 15 (0-50); Potassium 3.9 mmol/L (3.4-5.1); Sodium 139 mmol/L (137-145); Total Protein 6.3 g/dL (6.3-8.2); Uric Acid 5.4 mg/dL (3.5-8.5)
[2018-03-05 16:16] LABS: Procalcitonin 0.17 ng/mL (<0.5)
[2018-03-05 16:44] LABS: Erythrocyte Sedimentation Rate 74 MM/HR (0-15)
[2018-03-05] MEDS: HYDROMORPHONE 1 MG INJ 0.5 MG IV ×3 (17:16→23:22)
--- NOTE | 2018-03-05 19:32 | DI.CT.S_ITS ---
PROCEDURE: CT CHEST ABDOMEN W CON INDICATIONS: Findings suspicious for tumor to the left hip area on CT TECHNIQUE: After the administration of intravenous contrast, 5 mm thick sections acquired from the lung apices to the iliac crests. 5 mm coronal and sagittal reformats were performed, with additional 7 mm coronal MIP reformats through the lungs. For radiation dose reduction, the following was used: automated exposure control, adjustment of mA and/or kV according to patient size. COMPARISON: [facility], CT, CT PEL WO CON, 03/05/2018, 14:49. [facility], CR, XR HIP W PEL IF DONE LT 2V, 03/05/2018, 13:27. FINDINGS: Image quality: Excellent. CHEST: Lungs and pleura: A there is a large malignant appearing mass at the right perihilar lung parenchyma, a measuring up to 3.6 cm AP and 4.8 cm transverse, with direct invasion by tumor into the posterior mediastinum at the subcarinal space, and encasing the right mainstem bronchus and narrowing the bronchus, producing irregularity along the bronchial margin suspicious for endobronchial invasion. There is a cavitary appearance to the central portion of the mass where a small central air-filled space does not appear to communicate with the adjacent bronchi. No left-sided pleural effusions or pneumothorax bilaterally but there is a exudative appearing right pleural effusion showing a subtle pattern of rim enhancement and thickening, [id number] in overall size. There are at least 2 and possibly 3 malignant appearing left lower lung lesions, the largest of which is seen on series 2 image 44 at the posterolateral left lower lobe measuring slightly over 1 cm. This has spiculations.. Central and peripheral airways appear patent and normal in caliber. Mediastinum: Heart size is normal. No pericardial effusion. No mediastinal or hilar adenopathy by size criteria. Thoracic aorta and central pulmonary arteries are normal in size. Esophagus is normal in caliber. No hiatal hernia. Chest wall: No axillary or supraclavicular adenopathy by size criteria. Thyroid gland appears normal by CT criteria. ABDOMEN: Solid organs: Liver is normal in size and enhancement. Gallbladder appears free of inflammation but contains densely calcified dependent layering gallstones. Biliary system is non dilated. Pancreas enhances normally. Spleen is normal in size and enhancement. No adrenal nodules. Kidneys demonstrate normal size and enhancement, but with bilateral moderately severe hydronephrosis and hydroureter extending to the bladder level. Peritoneum and bowel: Bowel loops demonstrate normal wall thickness and caliber. No free fluid or air. Nodes and vessels: No retroperitoneal or mesenteric adenopathy by size criteria. Aorta and inferior vena cava are normal in size. Bones: No suspicious bony lesions. No vertebral body compression fractures. Miscellaneous: No ventral hernias. IMPRESSION: 1. 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 A bronchoscopic biopsy may be the appropriate next step, however the pleural effusion present appears slightly exudative and thoracentesis for cytology may be warranted initially. Suspect at least 2 pulmonary metastatic lesions are present on the left at the lung base. 2. The patient has a malignant appearing metastatic lesion involving the left hip. Within the axial and appendicular skeleton of the visualized chest and abdomen no additional osseous metastatic disease is seen. Nuclear medicine bone scan is recommended, however, for more accurate assessment and staging purposes. 3. Unusual pattern of prominent hydronephrosis and hydroureter extending without identifiable mass as the underlying cause into the bladder. Chronic bladder outlet obstruction may explain this appearance. Dictated by: Lisandro Lopez M.D. on 03/05/2018 at 20:55 Approved by: Lisandro Lopez M.D. on 03/05/2018 at 21:07
[2018-03-05] MEDS: SODIUM CHLORIDE 0.9% 1,000 ML 100 ML IV (20:15)
--- NOTE | 2018-03-05 22:11 | ED_ITS ---
HPI - Extremity Injury (Lower) <TESSY Flores - Last Filed: 03/05/18 22:31> General Chief Complaint: Extremity Injury, Lower Stated Complaint: Hip/Leg Pain Time Seen by Provider: 03/05/18 13:00 Source: patient Mode of arrival: EMS Limitations: no limitations History of Present Illness HPI Narrative: 78-year-old male with history of hypertension and osteoarthritis that is a nonsmoker here for complaint of pain into his room left hip area over the past couple of days. He reports he has had pain and on and off over the past several weeks. Pain got so worse today that he could not get out of bed. He was brought in by ambulance due to him not being able to get out of bed. He denies any falls. He denies any trauma to the left hip area. Reports increased pain with motion of the left hip area. He has been treated for pain into his left knee area by Orthopedics he reports that he recently received a cortisone shot to his left knee several weeks ago and this has helped his knee pain. He denies any fevers or chills. He denies any other current concerns or complaints at this timeframe. Related Data Home Medications Medication Instructions Recorded Confirmed allopurinol 100 mg PO DAILY 03/05/18 03/05/18 atenolol 50 mg PO DAILY 03/05/18 03/05/18 calcitriol 0.25 mcg PO DAILY 03/05/18 03/05/18 levothyroxine [Synthroid] 75 mcg PO DAILY 03/05/18 03/05/18 potassium chloride 20 meq PO DAILY 03/05/18 03/05/18 Allergies Allergy/AdvReac Type Severity Reaction Status Date / Time No Known Drug Allergies Allergy Verified 03/05/18 15:58 Review of Systems <TESSY Flores - Last Filed: 03/05/18 22:31> Constitutional Denies chills, Denies fever(s), Denies lethargy and Denies weakness Eyes Denies change in vision, Denies eye discharge, Denies irritation and Denies loss of vision ENT Ears, Nose, Mouth, and Throat: Denies change in voice, Denies neck pain and Denies sore throat Cardiovascular Denies chest pain, Denies irregular heart rhythm, Denies lightheadedness, Denies palpitations, Denies dyspnea, Denies dyspnea on exertion and Denies orthopnea Respiratory Denies cough, Denies dyspnea, Denies dyspnea on exertion and Denies wheezing Gastrointestinal Gastrointestinal: Denies abdominal pain, Denies change in bowel habits, Denies diarrhea, Denies nausea and Denies vomiting Genitourinary Denies hematuria, Denies flank pain, Denies urinary incontinence and Denies urinary urgency Musculoskeletal Denies neck pain Comments: Left hip pain Integumentary/Breasts Denies pruritus, Denies erythema, Denies rash and Denies wounds Neurologic Denies confusion, Denies loss of vision and Denies weakness Psychiatric Denies anxiety, Denies confusion, Denies depression, Denies homicidal ideation and Denies suicidal ideation Endocrine Denies palpitations Hematologic/Lymphatic Denies easy bruising Allergic/Immunologic Denies wheezing Exam <TESSY Flores - Last Filed: 03/05/18 22:31> Initial Vital Signs Initial Vital Signs: Vital Signs Temperature 97.7 F 03/05/18 13:03 Pulse Rate 122 H 03/05/18 13:03 Respiratory Rate 20 03/05/18 13:03 Blood Pressure 146/94 H 03/05/18 13:03 Pulse Oximetry 98 03/05/18 13:03 Const General: cooperative and well developed Nutritional Appearance: well nourished Orientation: alert, awake, oriented x3 and not confused [facility] Mouth: oral mucosae normal, oropharynx normal and No moist mucous membranes Eyes Conjunctivae: conjunctivae normal Sclera: sclerae normal Pupils: PERRL EOM: EOM intact bilaterally Resp Effort & Inspection: normal respiratory effort, able to speak in complete sentences, no respiratory distress and no use of accessory muscles Auscultation: clear to auscultation bilaterally, no rales, no rhonchi and no wheezes Cardio Rate: regular rate Rhythm: regular rhythm Heart Sounds: no click, no gallops, no murmurs and no rubs Pulses: normal peripheral pulses GI Inspection: non-distended Palpation: soft, no hepatosplenomegaly, No guarding, No pulsatile mass and No tender Auscultation: normal bowel sounds Skin General: no rashes or lesions noted, No jaundice and No petechiae Neuro General: alert, oriented x3, gait normal and no focal motor deficits Speech: speech normal Extrem Other: Left hip area with no signs of trauma. No ecchymosis. No swelling. Distal sensation is intact. Distal range of motion is intact. Distal pulses are intact. <Maryjo Levy DO - Last Filed: 03/06/18 17:09> Initial Vital Signs Initial Vital Signs: Vital Signs Temperature 97.7 F 03/05/18 13:03 Pulse Rate 122 H 03/05/18 13:03 Respiratory Rate 20 03/05/18 13:03 Blood Pressure 146/94 H 03/05/18 13:03 Pulse Oximetry 98 03/05/18 13:03 Course <TESSY Flores - Last Filed: 03/05/18 22:31> Orders Ordered: Discontinued Medications Hydromorphone HCl (Dilaudid) 1 mg IV NOW ONE Stop: 03/05/18 14:51 Last Admin: 03/05/18 14:56 Dose: 1 mg Hydromorphone HCl (Dilaudid) 0.5 mg IV NOW ONE Stop: 03/05/18 17:12 Last Admin: 03/05/18 17:16 Dose: 0.5 mg Hydromorphone HCl (Dilaudid) 0.5 mg IV NOW ONE Stop: 03/05/18 19:48 Last Admin: 03/05/18 19:58 Dose: 0.5 mg Hydromorphone HCl (Dilaudid) 0.5 mg IV NOW ONE Stop: 03/05/18 22:45 Last Admin: 03/05/18 23:22 Dose: 0.5 mg Sodium Chloride (Normal Saline 0.9%) 1,000 mls @ 1,000 mls/hr IV BOLUS ONE Stop: 03/05/18 14:16 Last Infusion: 03/05/18 15:32 Dose: 0 mls/hr Admin: 03/05/18 14:10 Dose: 1,000 mls/hr Sodium Chloride (Normal Saline 0.9%) 1,000 mls @ 1,000 mls/hr IV BOLUS ONE Stop: 03/05/18 16:55 Last Infusion: 03/05/18 17:35 Dose: 0 mls/hr Admin: 03/05/18 15:57 Dose: 1,000 mls/hr Sodium Chloride (Normal Saline 0.9%) 1,000 mls @ 100 mls/hr IV CONT KELSEY Last Infusion: 03/05/18 23:40 Dose: 100 mls/hr Admin: 03/05/18 20:15 Dose: 100 mls/hr Sodium Chloride (Normal Saline 0.9%) 1,000 mls @ 100 mls/hr IV CONT KELSEY Last Admin: 03/05/18 22:46 Dose: Vital Signs - 8 hr 03/05/18 14:30 03/05/18 15:11 03/05/18 15:36 Pulse Rate 105 H 106 H 108 H Respiratory Rate 13 14 23 Blood Pressure [Right Arm] 151/84 H 152/82 H 139/76 Pulse Oximetry 100 96 96 03/05/18 16:54 03/05/18 17:39 03/05/18 18:00 Pulse Rate 110 H 115 H 115 H Respiratory Rate 17 18 17 Blood Pressure [Right Arm] 149/81 H 131/71 146/94 H Pulse Oximetry 100 98 99 03/05/18 19:37 03/05/18 20:41 03/05/18 21:35 Pulse Rate 116 H 120 H 117 H Respiratory Rate 18 17 16 Blood Pressure [Right Arm] 151/89 H 148/91 H 144/92 H Pulse Oximetry 98 98 98 <Maryjo Levy, - Last Filed: 03/06/18 17:09> Orders Ordered: Discontinued Medications Hydromorphone HCl (Dilaudid) 1 mg IV NOW ONE Stop: 03/05/18 14:51 Last Admin: 03/05/18 14:56 Dose: 1 mg Hydromorphone HCl (Dilaudid) 0.5 mg IV NOW ONE Stop: 03/05/18 17:12 Last Admin: 03/05/18 17:16 Dose: 0.5 mg Hydromorphone HCl (Dilaudid) 0.5 mg IV NOW ONE Stop: 03/05/18 19:48 Last Admin: 03/05/18 19:58 Dose: 0.5 mg Hydromorphone HCl (Dilaudid) 0.5 mg IV NOW ONE Stop: 03/05/18 22:45 Last Admin: 03/05/18 23:22 Dose: 0.5 mg Sodium Chloride (Normal Saline 0.9%) 1,000 mls @ 1,000 mls/hr IV BOLUS ONE Stop: 03/05/18 14:16 Last Infusion: 03/05/18 15:32 Dose: 0 mls/hr Admin: 03/05/18 14:10 Dose: 1,000 mls/hr Sodium Chloride (Normal Saline 0.9%) 1,000 mls @ 1,000 mls/hr IV BOLUS ONE Stop: 03/05/18 16:55 Last Infusion: 03/05/18 17:35 Dose: 0 mls/hr Admin: 03/05/18 15:57 Dose: 1,000 mls/hr Sodium Chloride (Normal Saline 0.9%) 1,000 mls @ 100 mls/hr IV CONT KELSEY Last Infusion: 03/05/18 23:40 Dose: 100 mls/hr Admin: 03/05/18 20:15 Dose: 100 mls/hr Sodium Chloride (Normal Saline 0.9%) 1,000 mls @ 100 mls/hr IV CONT KELSEY Last Admin: 03/05/18 22:46 Dose: Vital Signs - 8 hr 03/05/18 14:30 03/05/18 15:11 03/05/18 15:36 Pulse Rate 105 H 106 H 108 H Respiratory Rate 13 14 23 Blood Pressure [Right Arm] 151/84 H 152/82 H 139/76 Pulse Oximetry 100 96 96 03/05/18 16:54 03/05/18 17:39 03/05/18 18:00 Pulse Rate 110 H 115 H 115 H Respiratory Rate 17 18 17 Blood Pressure [Right Arm] 149/81 H 131/71 146/94 H Pulse Oximetry 100 98 99 03/05/18 19:37 03/05/18 20:41 03/05/18 21:35 Pulse Rate 116 H 120 H 117 H Respiratory Rate 18 17 16 Blood Pressure [Right Arm] 151/89 H 148/91 H 144/92 H Pulse Oximetry 98 98 98 MDM - Extremity Injury (Lower) <TESSY Flores - Last Filed: 03/05/18 22:31> Lab Data Result diagrams: 03/05/18 15:27 03/05/18 15:27 Lab Results 03/05/18 03/05/18 03/05/18 Range/Units 15:27 15:27 15:27 WBC 18.3 H (4.5-11.0) X10^3/uL RBC 4.21 L (4.5-5.9) X10^6/uL Hgb 12.8 L (13.5-17.5) g/dL Hct 37.4 L (41-53) % MCV 88.7 (80-100) fL MCH 30.5 (26-34) PG MCHC 34.4 (30-36) % RDW 14.3 (11.6-14.8) % Plt Count 378 (150-400) X10^3/uL Neut % (Auto) 92.5 H (50-75) % Lymph % (Auto) 2.8 L (25-40) % [place] % (Auto) 4.1 (3-14) % Eos % (Auto) 0.4 L (2-4) % Baso % (Auto) 0.2 (0-2) % Neut # (Auto) 77847 H (8982-0063) /uL ESR 74 H (0-15) MM/HR Sodium 139 (137-145) mmol/L Potassium 3.9 (3.4-5.1) mmol/L Chloride 101 (98-107) mmol/L Carbon Dioxide 24 (22-32) mmol/L BUN 23 H (9-20) mg/dL Creatinine 1.50 H (0.66-1.25) mg/dL Estimated GFR 45.4 L (>60) mL/min BUN/Creatinine Ratio 15.3 (6-22) Glucose 140 H (80-110) mg/dL Lactate (0.7-2.1) mmol/L Uric Acid 5.4 (3.5-8.5) mg/dL Calcium 10.0 (8.4-10.2) mg/dL Total Bilirubin 0.8 (0.2-1.3) mg/dL AST 20 (17-59) IU/L ALT 22 (21-72) IU/L Alkaline Phosphatase 64 (38-126) U/L C-Reactive Protein 6.4 H (<1.0) mg/dL Total Protein 6.3 (6.3-8.2) g/dL Albumin 3.3 L (3.5-5.0) g/dL Globulin 3.0 (1.7-4.1) g/dL Albumin/Globulin Ratio 1.1 (1.0-2.8) Procalcitonin 0.17 (<0.5) ng/mL 03/05/18 Range/Units 15:27 WBC (4.5-11.0) X10^3/uL RBC (4.5-5.9) X10^6/uL Hgb (13.5-17.5) g/dL Hct (41-53) % MCV (80-100) fL MCH (26-34) PG MCHC (30-36) % RDW (11.6-14.8) % Plt Count (150-400) X10^3/uL Neut % (Auto) (50-75) % Lymph % (Auto) (25-40) % [place] % (Auto) (3-14) % Eos % (Auto) (2-4) % Baso % (Auto) (0-2) % Neut # (Auto) (7801-7550) /uL ESR (0-15) MM/HR Sodium (137-145) mmol/L Potassium (3.4-5.1) mmol/L Chloride (98-107) mmol/L Carbon Dioxide (22-32) mmol/L BUN (9-20) mg/dL Creatinine (0.66-1.25) mg/dL Estimated GFR (>60) mL/min BUN/Creatinine Ratio (6-22) Glucose (80-110) mg/dL Lactate 1.1 (0.7-2.1) mmol/L Uric Acid (3.5-8.5) mg/dL Calcium (8.4-10.2) mg/dL Total Bilirubin (0.2-1.3) mg/dL AST (17-59) IU/L ALT (21-72) IU/L Alkaline Phosphatase (38-126) U/L C-Reactive Protein (<1.0) mg/dL Total Protein (6.3-8.2) g/dL Albumin (3.5-5.0) g/dL Globulin (1.7-4.1) g/dL Albumin/Globulin Ratio (1.0-2.8) Procalcitonin (<0.5) ng/mL Imaging Data Left hip x-ray : Radiologist's impression: [address] [address] XRay Report Signed Patient: Avtar Walters MR#: [id number] : 1940 Acct:[id number] Age/Sex: 78 / M Date of Service: 03/05/18 Loc: ED Accession Number: [id number] Procedure: XR hip w pel if done LT 2V Ordering Provider: Candido Vazquez PROCEDURE: XR HIP W PEL IF DONE LT 2V INDICATIONS: LEFT HIP AND LEG PAIN TECHNIQUE: AP pelvis with lateral view(s) of the left hip(s). COMPARISON: None. FINDINGS: Bones: Moderate to severe bilateral hip joint osteoarthritic changes are seen. Left hip is internally rotated, which obscures the evaluation of left femoral neck. No definite displaced fractures or dislocations. Pelvic ring appears intact. No suspicious bony lesions. Soft tissues: The visualized bowel gas pattern is normal. No suspicious soft tissue calcifications. IMPRESSION: Slightly limited evaluation of left femoral neck due to to internal hip rotation. Moderate bilateral hip joint osteoarthritis. No definite fracture is seen. If clinically indicated, CT of left hip can be done for further evaluation. Dictated by: Jun Snyder M.D. on 03/05/2018 at 13:51 Approved by: Jun Snyder M.D. on 03/05/2018 at 13:52 Venous US: Radiologist's impression: [place] [address] Ultrasound Report Signed Patient: Avtar Walters MR#: [id number] : 1940 Acct:[id number] Age/Sex: 78 / M Date of Service: 03/05/18 Loc: ED Accession Number: [id number] Procedure: US periph venous low extrem lt Ordering Provider: Candido Vazquez PROCEDURE: US PERIPH VENOUS LOW EXTREM LT INDICATIONS: PAIN TECHNIQUE: Real-time imaging, as well as color and pulse Doppler interrogation, were performed of the lower extremity deep veins from the inguinal ligament to the popliteal fossa. COMPARISON: None. FINDINGS: The deep veins are normally compressible, and free of intraluminal thrombus. Color and pulse Doppler demonstrate normal phasic intraluminal flow. There is normal augmentation response to distal compression maneuver. There appears to be calcification along the posterior aspect of the left knee, which probably represents a joint body within a Noonan cyst. IMPRESSION: 1. No evidence of deep vein thrombosis involving the left lower extremity. 2. 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 Dictated by: Pola Moore M.D. on 03/05/2018 at 13:11 Approved by: Pola Moore M.D. on 03/05/2018 at 13:13 CT scan - pelvis: Radiologist's impression: [address] [address] [address] Scan Report Signed Patient: Avtar Walters MR#: [id number] : 1940 Acct:[id number] Age/Sex: 78 / M Date of Service: 03/05/18 Loc: ED Accession Number: [id number] Procedure: CT pelvis wo con Ordering Provider: Candido Vazquez PROCEDURE: CT PEL WO CON INDICATIONS: Left thigh left hip pain TECHNIQUE: Noncontrast 3 mm axial sections acquired through the bony pelvis, with coronal and sagittal reformatting. COMPARISON: None. FINDINGS: Image quality: Excellent. Bones: There is an acute-appearing nondisplaced fracture through distal left femoral neck with fracture line extending to involve lesser trochanter. Multiple area of well-circumscribed radiolucency is seen scattered in left femoral neck and proximal left femoral shaft with the largest area measures 3.6 x 3 x 4.9 cm in its largest AP , transverse, and craniocaudal dimensions involving inferior aspect of left femoral neck/intertrochanteric region. Finding is suspicious for pathologic fracture involving left femoral neck. Osteoarthritic changes are noted in bilateral hip joints. No other area of suspicious bony lesion is seen. No evidence of avascular necrosis of femoral head. Bilateral sacroiliac joint osteophytic changes also seen. Soft tissues: Soft tissue swelling around left femoral neck fracture site is noted. No significant joint effusion is seen. No gross left hip muscle or tendon abnormality is noted. Enlarged prostate gland is noted with mass effect on floor of urinary bladder. Small bilateral bladder wall diverticuli are seen. No discrete bladder wall mass. There is no pelvic free fluid or free air. No abnormal bowel wall thickening. No pelvic adenopathy. IMPRESSION: 1. Suggestion of a nondisplaced pathologic fracture through distal left femoral neck with multiple lytic lesions scattered in left femoral neck and proximal femoral shaft. 2. Osteoarthritic changes in bilateral hip joints and sacroiliac joints. No evidence of avascular necrosis. 3. 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 Dictated by: Jun Snyder M.D. on 03/05/2018 at 15:14 Approved by: Jun Snyder M.D. on 03/05/2018 at 15:27 CT scan - chest: Radiologist's impression: [address] [place] [id number] Scan Report Signed Patient: Avtar Walters MR#: [id number] : 1940 Acct:[id number] Age/Sex: 78 / M Date of Service: 03/05/18 Loc: ED Accession Number: [id number] Procedure: CT chest abdomen w con Ordering Provider: Candido Vazquez PROCEDURE: CT CHEST ABDOMEN W CON INDICATIONS: Findings suspicious for tumor to the left hip area on CT TECHNIQUE: After the administration of intravenous contrast, 5 mm thick sections acquired from the lung apices to the iliac crests. 5 mm coronal and sagittal reformats were performed, with additional 7 mm coronal MIP reformats through the lungs. For radiation dose reduction, the following was used: automated exposure control, adjustment of mA and/or kV according to patient size. COMPARISON: [facility], CT, CT PEL WO CON, 03/05/2018, 14:49. [facility], CR, XR HIP W PEL IF DONE LT 2V, 03/05/2018, 13:27. FINDINGS: Image quality: Excellent. CHEST: Lungs and pleura: A there is a large malignant appearing mass at the right perihilar lung parenchyma, a measuring up to 3.6 cm AP and 4.8 cm transverse, with direct invasion by tumor into the posterior mediastinum at the subcarinal space, and encasing the right mainstem bronchus and narrowing the bronchus, producing irregularity along the bronchial margin suspicious for endobronchial invasion. There is a cavitary appearance to the central portion of the mass where a small central air-filled space does not appear to communicate with the adjacent bronchi. No left-sided pleural effusions or pneumothorax bilaterally but there is a exudative appearing right pleural effusion showing a subtle pattern of rim enhancement and thickening, [id number] in overall size. There are at least 2 and possibly 3 malignant appearing left lower lung lesions, the largest of which is seen on series 2 image 44 at the posterolateral left lower lobe measuring slightly over 1 cm. This has spiculations.. Central and peripheral airways appear patent and normal in caliber. Mediastinum: Heart size is normal. No pericardial effusion. No mediastinal or hilar adenopathy by size criteria. Thoracic aorta and central pulmonary arteries are normal in size. Esophagus is normal in caliber. No hiatal hernia. Chest wall: No axillary or supraclavicular adenopathy by size criteria. Thyroid gland appears normal by CT criteria. ABDOMEN: Solid organs: Liver is normal in size and enhancement. Gallbladder appears free of inflammation but contains densely calcified dependent layering gallstones. Biliary system is non dilated. Pancreas enhances normally. Spleen is normal in size and enhancement. No adrenal nodules. Kidneys demonstrate normal size and enhancement, but with bilateral moderately severe hydronephrosis and hydroureter extending to the bladder level. Peritoneum and bowel: Bowel loops demonstrate normal wall thickness and caliber. No free fluid or air. Nodes and vessels: No retroperitoneal or mesenteric adenopathy by size criteria. Aorta and inferior vena cava are normal in size. Bones: No suspicious bony lesions. No vertebral body compression fractures. Miscellaneous: No ventral hernias. IMPRESSION: 1. 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 A bronchoscopic biopsy may be the appropriate next step, however the pleural effusion present appears slightly exudative and thoracentesis for cytology may be warranted initially. Suspect at least 2 pulmonary metastatic lesions are present on the left at the lung base. 2. The patient has a malignant appearing metastatic lesion involving the left hip. Within the axial and appendicular skeleton of the visualized chest and abdomen no additional osseous metastatic disease is seen. Nuclear medicine bone scan is recommended, however, for more accurate assessment and staging purposes. 3. Unusual pattern of prominent hydronephrosis and hydroureter extending without identifiable mass as the underlying cause into the bladder. Chronic bladder outlet obstruction may explain this appearance. Dictated by: Lisandro Lopez M.D. on 03/05/2018 at 20:55 Approved by: Lisandro Lopez M.D. on 03/05/2018 at 21:07 MDM Narrative Medical decision making narrative: CBC shows elevated white count. CRP and ESR are also elevated. Ultrasound of the left lower extremity was obtained and was negative for any blood clot. X-ray of the left hip was obtained and was inconclusive for a possible femoral neck fracture. Patient's heart rate was elevated while in the emergency room today. After some fluids his heart rate normalized some however still remained tachycardic. CT of the pelvis eversion was obtained and shows findings consistent with malignancy to the left hip area with a lesion seen to the left hip region and a pathological fracture to the left femoral neck. Discussed case with Orthopedics who recommend transfer of patient to larger hospital with Oncology available with Orthopedics for for further treatment and evaluation. CT of the abdomen and chest was obtained and shows areas to the Pulmonary regions with lesions that appear to be metastatic to pulmonary area. CT abdomen pelvis also shows some hydronephrosis and hydroureter however no metastatic disease is seen to the renal/ bladder area discussed case with hospitalist and Orthopedics at [facility] Dr. Holguin and Dr. Herrera who accepted patient. Patient is transferred to [facility] via ALS. <Maryjo Levy, DO - Last Filed: 03/06/18 17:09> Lab Data Lab Results 03/05/18 03/05/18 03/05/18 Range/Units 15:27 15:27 15:27 WBC 18.3 H (4.5-11.0) X10^3/uL RBC 4.21 L (4.5-5.9) X10^6/uL Hgb 12.8 L (13.5-17.5) g/dL Hct 37.4 L (41-53) % MCV 88.7 (80-100) fL MCH 30.5 (26-34) PG MCHC 34.4 (30-36) % RDW 14.3 (11.6-14.8) % Plt Count 378 (150-400) X10^3/uL Neut % (Auto) 92.5 H (50-75) % Lymph % (Auto) 2.8 L (25-40) % [place] % (Auto) 4.1 (3-14) % Eos % (Auto) 0.4 L (2-4) % Baso % (Auto) 0.2 (0-2) % Neut # (Auto) 80275 H (2997-2649) /uL ESR 74 H (0-15) MM/HR Sodium 139 (137-145) mmol/L Potassium 3.9 (3.4-5.1) mmol/L Chloride 101 (98-107) mmol/L Carbon Dioxide 24 (22-32) mmol/L BUN 23 H (9-20) mg/dL Creatinine 1.50 H (0.66-1.25) mg/dL Estimated GFR 45.4 L (>60) mL/min BUN/Creatinine Ratio 15.3 (6-22) Glucose 140 H (80-110) mg/dL Lactate (0.7-2.1) mmol/L Uric Acid 5.4 (3.5-8.5) mg/dL Calcium 10.0 (8.4-10.2) mg/dL Total Bilirubin 0.8 (0.2-1.3) mg/dL AST 20 (17-59) IU/L ALT 22 (21-72) IU/L Alkaline Phosphatase 64 (38-126) U/L C-Reactive Protein 6.4 H (<1.0) mg/dL Total Protein 6.3 (6.3-8.2) g/dL Albumin 3.3 L (3.5-5.0) g/dL Globulin 3.0 (1.7-4.1) g/dL Albumin/Globulin Ratio 1.1 (1.0-2.8) Procalcitonin 0.17 (<0.5) ng/mL 03/05/ Range/Units 15:27 WBC (4.5-11.0) X10^3/uL RBC (4.5-5.9) X10^6/uL Hgb (13.5-17.5) g/dL Hct (41-53) % MCV (80-100) fL MCH (26-34) PG MCHC (30-36) % RDW (11.6-14.8) % Plt Count (150-400) X10^3/uL Neut % (Auto) (50-75) % Lymph % (Auto) (25-40) % [place] % (Auto) (3-14) % Eos % (Auto) (2-4) % Baso % (Auto) (0-2) % Neut # (Auto) (3533-9187) /uL ESR (0-15) MM/HR Sodium (137-145) mmol/L Potassium (3.4-5.1) mmol/L Chloride (98-107) mmol/L Carbon Dioxide (22-32) mmol/L BUN (9-20) mg/dL Creatinine (0.66-1.25) mg/dL Estimated GFR (>60) mL/min BUN/Creatinine Ratio (6-22) Glucose (80-110) mg/dL Lactate 1.1 (0.7-2.1) mmol/L Uric Acid (3.5-8.5) mg/dL Calcium (8.4-10.2) mg/dL Total Bilirubin (0.2-1.3) mg/dL AST (17-59) IU/L ALT (21-72) IU/L Alkaline Phosphatase (38-126) U/L C-Reactive Protein (<1.0) mg/dL Total Protein (6.3-8.2) g/dL Albumin (3.5-5.0) g/dL Globulin (1.7-4.1) g/dL Albumin/Globulin Ratio (1.0-2.8) Procalcitonin (<0.5) ng/mL Discharge Plan Departure Patient Disposition: [facility] Clinical Impression: Pathologic fracture of femoral neck Discharge Date/Time: 03/05/18 23:42 Interventions: ED Discharge Assessment Last Done: 03/05/18 23:41 Prescriptions: No Action allopurinol 100 mg Tablet 100 mg PO DAILY RF: 0 levothyroxine [Synthroid] 75 mcg Tablet 75 mcg PO DAILY RF: 0 calcitriol 0.25 mcg Capsule 0.25 mcg PO DAILY RF: 0 potassium chloride 20 mEq Tablet Extended Release 20 meq PO DAILY RF: 0 atenolol 50 mg Tablet 50 mg PO DAILY RF: 0 <Maryjo Levy DO - Last Filed: 03/06/18 17:09> Cosign ED Attending Cosignature Attestation: I was immediately available in the department for consultation, case was discussed, orthopedic recommendations and plan for transfer. This documentation has been reviewed and I agree with assessment and plan. Supervised by Maryjo Levy DO
--- NOTE | 2018-03-05 22:32 | PC.NURSE ---
Gave Report to Earnestine at transfer center. She told us to have ambulance go to ED entrance.
--- NOTE | 2018-04-02 17:25 | CM.SWNOTE ---
ED MANAGER CHEMICAL NOTE/ f/u phone call [facility] was asked to follow up with this pt and his . Evidently pt came in initially due to hip pain and in the course of xrays, lung cancer stage 4 was discovered. Pt is a very high risk for falls. had hoped for SNF after admission to , but instead was discharged home. This SW was asked to follow up. There are notes in the chart by KRISTINA Martell. SW spoke with pt's . She stated that instead of switching pt's care to [facility], they are gong to remain at [facility] so they pt can receive radiation and chemo at the same place. She mentioned that the doctor who performed the hip sx ordered home PT and OT, but her is often too tired to do the exercises they recommend. She informed [facility] that they saw Dr Alvarado for an initial appointment. Pt's is very pleasant, but seemed understandably overwhelmed with the current situation. She was open to receiving some type of supportive counseling or someone to help guide them through the maze of cancer treatment. This SW was not sure if Gemma at the [facility] is able to see people not receiving services at ,but this [facility] sent her an email inquiring. Pt's gave consent for this SW to give her name to Gemma with contact information. She was very appreciative of the phone call and welcomes any additional support.
== END 2018-03-05 23:42 | disposition short-term general hospital (02) ==
PROVIDERS: Emergency Provider Nurse Practitioner Family; PCP Nurse Practitioner Family
DX: M84.452A Pathological fracture, left femur, initial encounter for fracture (principal)
CPT/HCPCS: 71260; 72192; 73502; 74160; 80053; 83605; 84145; 84550; 85025; 85651; 86140; 93971; 96361; 96374; 96376; 99285; J1170; Q9967

== ENCOUNTER 2018-03-24 18:37 | Observation (INO) | payer MEDICARE, SELFPAY ==
[2018-03-24] VITALS (9 sets, daily range): BP systolic 108–149; BP diastolic 57–91; PULSE 16–117; RESP 15–42; TEMP 36.3–36.5; O2SAT 89–100; BMI 26.6
--- NOTE | 2018-03-24 18:43 | DI.CT.S_ITS ---
PROCEDURE: CT ANGIO CHEST PE PROTOCOL INDICATIONS: short of breath hx lung cancer TECHNIQUE: After the administration of intravenous contrast, 2 mm thick sections acquired from the pulmonary apices to the posterior costophrenic angles. 3-dimensional maximum intensity projection (MIP) coronal and sagittal reformats were then acquired through the thorax. For radiation dose reduction, the following was used: automated exposure control, adjustment of mA and/or kV according to patient size. COMPARISON: [facility], CT, CT CHEST ABDOMEN W CON, 03/05/2018, 19:56. FINDINGS: Image quality: Excellent. Pulmonary arteries: The left pulmonary arteries are normal in size without intraluminal filling defects. Multiple segmental and subsegmental branches of the right pulmonary artery are narrowed or occluded by the large right hilar mass. A pulmonary embolus is visualized within one of the subsegmental branches of the right lower lobe (series 4, image 81). In retrospect, this was likely present on the study dated 03/05/18, although less obvious given the difference in contrast timing. Lungs and pleura: Spiculated right hilar mass has a similar appearance to the study dated 03/05/18. As before, there is narrowing of the right mainstem and segmental bronchi. There is a small low density right pleural effusion and compressive atelectasis which is similar to the prior study. A 2.3 x 1.6 cm mass with spiculated margins is present in the left lower lobe which is increased from 1.5 x 1.1 cm on the study dated 03/05/18. A 4 mm pulmonary nodule is present within the right upper lobe which was not visualized on the prior study (series 5, image 22). A 5 mm interfissural nodule within the left oblique fissure is redemonstrated (series 5, image 18). No left pleural effusion. A spiculated mass at the posterior medial left lung base measures 8 mm in diameter, as before. Mediastinum: Heart size is normal. There is a small low density pericardial effusion which is increased when compared with the prior study. No leftward septal bowing of the interventricular septum. No mediastinal or hilar adenopathy. Thoracic aorta is normal in caliber and enhancement. Esophagus is normal in caliber, without hiatal hernia. Bones and chest wall: No suspicious bony lesions. Ribs and thoracic spine appear intact throughout. Thyroid gland is unremarkable. No axillary or supraclavicular adenopathy. Abdomen: Calcified gallstones are partially visualized within the gallbladder fundus. A low-density cystic lesion is partially visualized at the upper pole of the left kidney. Visualized upper abdominal solid organs appear otherwise normal in the early arterial phase of enhancement. IMPRESSION: 1. Subsegmental barium bolus at the right lower lobe which in retrospect was likely present on the study dated 03/05/18. No other discrete pulmonary emboli visualized. 2. Large right hilar mass through which multiple branches of the right pulmonary artery and the right bronchus extend. Overall the findings are similar to the study dated 03/05/18. 3. Increased size of a left lower lobe spiculated mass and a new left pulmonary nodule suspicious for progression of disease. 4. Small low density pericardial effusion increased in size when compared with the prior study. These findings were discussed with Dr. Michel at 8:01 PM on 03/24/18. 5. Cholelithiasis. Dictated by: Marita Iniguez M.D. on 03/24/2018 at 19:51 Approved by: Marita Iniguez M.D. on 03/24/2018 at 20:03
--- NOTE | 2018-03-24 18:46 | ED_ITS ---
HPI - SOB/Dyspnea General Chief Complaint: Shortness of Breath/Dyspnea Stated Complaint: shortness of breath: Stage IV lung CA. Time Seen by Provider: 03/24/18 18:38 Source: patient, EMS and old records reviewed Limitations: no limitations History of Present Illness Patient is a 78-year-old male with recently a new diagnosed lung cancer. Presenting with worsening shortness of breath and fatigue. He has not yet started any chemotherapy. He had a PATHOLOGIC HIP fracture in February which is when he was diagnosed. He was then transferred to [facility]. Discharge on 03/10/2018. he has been getting around with a walker at home. He was feeling well earlier in the day. Not had any fever or chills. His is noticed increased respiratory distress with minimal exertion. Today he was getting around with his walker when he had some obvious respiratory distress it happened a couple of times. He has not passed out no chest pain no heart palpitations. MD Complaint: shortness of breath Related Data Home Medications Medication Instructions Recorded Confirmed allopurinol 100 mg PO DAILY 03/05/18 03/24/18 atenolol 50 mg PO DAILY 03/05/18 03/24/18 calcitriol 0.25 mcg PO DAILY 03/05/18 03/24/18 levothyroxine [Synthroid] 75 mcg PO DAILY 03/05/18 03/24/18 potassium chloride 20 meq PO DAILY 03/05/18 03/24/18 aspirin [Adult Low Dose Aspirin] 81 mg PO BID 03/24/18 03/24/18 tamsulosin 0.4 mg PO BEDTIME 03/24/18 03/24/18 Allergies Allergy/AdvReac Type Severity Reaction Status Date / Time shellfish derived Allergy Verified 03/24/18 22:27 Review of Systems Review of Systems ROS Unobtainable: All systems reviewed & are unremarkable except as noted in HPI and below Constitutional Denies chills, Denies fever(s), Denies lethargy and Denies weakness Eyes Denies change in vision, Denies eye discharge, Denies irritation and Denies loss of vision Cardiovascular Denies chest pain, Denies irregular heart rhythm, Denies lightheadedness, Denies palpitations and Denies orthopnea Respiratory Reports as per HPI Gastrointestinal Gastrointestinal: Denies abdominal pain, Denies change in bowel habits, Denies diarrhea, Denies nausea and Denies vomiting Genitourinary Denies hematuria, Denies flank pain, Denies urinary incontinence and Denies urinary urgency Musculoskeletal Denies back pain, Denies muscle weakness, Denies numbness and Denies tingling Integumentary/Breasts Denies pruritus, Denies erythema, Denies rash and Denies wounds Neurologic Denies loss of vision, Denies numbness, Denies tingling and Denies weakness Endocrine Denies palpitations [facility] Medical History BPH (benign prostatic hyperplasia) (Acute) Gout (Acute) Hypertension (Acute) Hypothyroid (Acute) Renal failure (Acute) Social History marital status: household members: spouse Smoking Status: Former smoker alcohol intake: current Exam Initial Vital Signs Initial Vital Signs: Vital Signs Temperature 97.7 F 03/24/18 18:40 Pulse Rate 98 H 03/24/18 18:40 Respiratory Rate 26 H 03/24/18 18:40 Blood Pressure 149/91 H 03/24/18 18:40 Pulse Oximetry 99 03/24/18 18:40 GENERAL: Weak appearing male alert and oriented x3 HEENT: Head atraumatic,EOMI, pupils reactive CARDIOVASCULAR: Regular rate and rhythm without murmurs, rubs or gallops. RESPIRATORY: Coarse breath sounds more on right than left no obvious respiratory distress no wheezing ABDOMEN: Soft, nontender. Normoactive bowel sounds all 4 quadrants. No guarding or rebound EXTREMITIES: Normal range of motion, no clubbing or edema. Neurovascularly intact NEUROLOGICAL: Alert and oriented x4.Normal gait and speech. SKIN: Warm, dry, no laceration, no petechiae, no rashes or lesions. Course Orders Ordered: ED Orders 03/24/18 18:42 Consult to Respiratory Therapy Evaluate & Treat EKG-12 Lead Stat 03/24/18 18:43 CT angio chest PE protocol Stat 03/24/18 18:54 B Type Natriuretic Peptide Stat Complete Blood Count AUTO DIFF Stat Comprehensive Metabolic Panel Stat Magnesium Stat Partial Thromboplastin Time Stat Prothrombin Time INR Stat Troponin & CK Cardiac Panel Stat 03/24/18 22:02 Consult to Dietitian, Adult Routine Consult to Massage Operator Routine 03/24/18 22:29 Consult to Dietitian, Adult Routine Consult to Massage Operator Routine 03/24/18 23:46 Education, smoking cessation ONGOING Acetaminophen (Tylenol) 650 mg PO Q6HR PRN PRN Reason: As Needed for Fever/Mild Pain Sodium Chloride (Normal Saline 0.9%) 1,000 mls @ 150 mls/hr IV CONT KELSEY Last Infusion: 03/24/18 22:07 Dose: 150 mls/hr Infusion: 03/24/18 21:38 Dose: 0 mls/hr Admin: 03/24/18 19:24 Dose: 150 mls/hr Discontinued Medications Albuterol/Ipratropium (Duoneb) 3 ml INH NOW ONE Stop: 03/24/18 18:43 Last Admin: 03/24/18 19:06 Dose: 3 ml Apixaban (Eliquis) 10 mg PO NOW ONE Stop: 03/24/18 21:09 Last Admin: 03/24/18 23:18 Dose: Rivaroxaban (Xarelto) 15 mg PO NOW ONE Stop: 03/24/18 21:18 Last Admin: 03/24/18 21:37 Dose: 15 mg Vital Signs - 8 hr 03/24/18 18:40 03/24/18 19:06 03/24/18 19:54 Temperature 97.7 F Pulse Rate 98 H 99 H 97 H Respiratory Rate 26 H 21 15 Blood Pressure 149/91 H Blood Pressure [Left Arm] 116/73 Pulse Oximetry 99 99 100 03/24/18 20:30 03/24/18 20:45 03/24/18 21:00 Temperature Pulse Rate 97 H 16 L 117 H Respiratory Rate 16 18 42 H Blood Pressure Blood Pressure [Left Arm] 109/69 109/69 Pulse Oximetry 100 98 89 L 03/24/18 21:41 03/24/18 21:56 03/24/18 23:46 Temperature 97.7 F 97.3 F L Pulse Rate 95 H 89 89 Respiratory Rate 37 H 20 20 Blood Pressure 108/71 124/76 117/57 L Blood Pressure [Left Arm] Pulse Oximetry 95 95 98 MDM - SOB/Dyspnea Lab Data Attestation: I reviewed the patient's lab results. Result diagrams: 03/24/18 18:54 03/24/18 18:54 Lab Results 03/24/18 03/24/18 03/24/18 Range/Units 18:54 18:54 18:54 WBC 15.0 H (4.5-11.0) X10^3/uL RBC 4.33 L (4.5-5.9) X10^6/uL Hgb 12.8 L (13.5-17.5) g/dL Hct 38.3 L (41-53) % MCV 88.4 (80-100) fL MCH 29.6 (26-34) PG MCHC 33.5 (30-36) % RDW 15.2 H (11.6-14.8) % Plt Count 552 H (150-400) X10^3/uL Neut % (Auto) 83.6 H (50-75) % Lymph % (Auto) 7.9 L (25-40) % Carter % (Auto) 6.7 (3-14) % Eos % (Auto) 0.8 L (2-4) % Baso % (Auto) 1.0 (0-2) % Neut # (Auto) 69517 H (0108-9787) /uL Lymph # (Auto) 1200 (6574-2905) /uL Carter # (Auto) 1000 H (0-900) /uL Eos # (Auto) 100 (0-450) /uL Baso # (Auto) 100 (0-100) /uL PT 13.4 H (10.1-12.7) SECONDS INR 1.2 (0.9-1.3) APTT 31 (26.4-36.2) SECONDS Sodium 134 L (137-145) mmol/L Potassium 4.5 (3.4-5.1) mmol/L Chloride 97 L (98-107) mmol/L Carbon Dioxide 23 (22-32) mmol/L BUN 26 H (9-20) mg/dL Creatinine 1.60 H (0.66-1.25) mg/dL Estimated GFR 42.1 L (>60) mL/min BUN/Creatinine Ratio 16.3 (6-22) Glucose 137 H (80-110) mg/dL Calcium 10.8 H (8.4-10.2) mg/dL Magnesium 1.5 L (1.6-2.3) mg/dL Total Bilirubin 1.2 (0.2-1.3) mg/dL AST 23 (17-59) IU/L ALT 19 L (21-72) IU/L Alkaline Phosphatase 79 (38-126) U/L Total Creatine Kinase < 20 L (55-170) U/L CK-MB (CK-2) TNP CK-MB (CK-2) Rel Index TNP Troponin I 0.060 H (0.01-0.034) ng/mL B-Natriuretic Peptide 250 H (<100) Total Protein 6.4 (6.3-8.2) g/dL Albumin 3.4 L (3.5-5.0) g/dL Globulin 3.0 (1.7-4.1) g/dL Albumin/Globulin Ratio 1.1 (1.0-2.8) Imaging Data CT scan - chest: Radiologist's impression: PROCEDURE: CT ANGIO CHEST PE PROTOCOL INDICATIONS: short of breath hx lung cancer TECHNIQUE: After the administration of intravenous contrast, 2 mm thick sections acquired from the pulmonary apices to the posterior costophrenic angles. 3-dimensional maximum intensity projection (MIP) coronal and sagittal reformats were then acquired through the thorax. For radiation dose reduction, the following was used: automated exposure control, adjustment of mA and/or kV according to patient size. COMPARISON: [facility], CT, CT CHEST ABDOMEN W CON, 03/05/2018, 19:56. FINDINGS: Image quality: Excellent. Pulmonary arteries: The left pulmonary arteries are normal in size without intraluminal filling defects. Multiple segmental and subsegmental branches of the right pulmonary artery are narrowed or occluded by the large right hilar mass. A pulmonary embolus is visualized within one of the subsegmental branches of the right lower lobe ( series 4, image 81). In retrospect, this was likely present on the study dated 03/05/18, although less obvious given the difference in contrast timing. Lungs and pleura: Spiculated right hilar mass has a similar appearance to the study dated 03/05/18. As before, there is narrowing of the right mainstem and segmental bronchi. There is a small low density right pleural effusion and compressive atelectasis which is similar to the prior study. A 2.3 x 1.6 cm mass with spiculated margins is present in the left lower lobe which is increased from 1.5 x 1.1 cm on the study dated 03/05/18. A 4 mm pulmonary nodule is present within the right upper lobe which was not visualized on the prior study (series 5, image 22). A 5 mm interfissural nodule within the left oblique fissure is redemonstrated (series 5, image 18). No left pleural effusion. A spiculated mass at the posterior medial left lung base measures 8 mm in diameter, as before. Mediastinum: Heart size is normal. There is a small low density pericardial effusion which is increased when compared with the prior study. No leftward septal bowing of the interventricular septum. No mediastinal or hilar adenopathy. Thoracic aorta is normal in caliber and enhancement. Esophagus is normal in caliber, without hiatal hernia. Bones and chest wall: No suspicious bony lesions. Ribs and thoracic spine appear intact throughout. Thyroid gland is unremarkable. No axillary or supraclavicular adenopathy. Abdomen: Calcified gallstones are partially visualized within the gallbladder fundus. A low-density cystic lesion is partially visualized at the upper pole of the left kidney. Visualized upper abdominal solid organs appear otherwise normal in the early arterial phase of enhancement. IMPRESSION: 1. Subsegmental barium bolus at the right lower lobe which in retrospect was likely present on the study dated 03/05/18. No other discrete pulmonary emboli visualized. 2. Large right hilar mass through which multiple branches of the right pulmonary artery and the right bronchus extend. Overall the findings are similar to the study dated 03/05/18. 3. Increased size of a left lower lobe spiculated mass and a new left pulmonary nodule suspicious for progression of disease. 4. Small low density pericardial effusion increased in size when compared with the prior study. These findings were discussed with Dr. Michel at 8:01 PM on 03/24/18. 5. Cholelithiasis. Dictated by: Marita Iniguez M.D. on 03/24/2018 at 19:51 ECG Data Attestation: I personally reviewed and interpreted this ECG as follows: Prior ECG tracings: not available for review Interpretation: sinus rhythm rate 99 NM interval 207 1st degree AV block no ST elevations or depressions no T-wave inversions MDM Narrative Medical decision making narrative: patient's pulmonary embolism has likely been present since March 05. Ambulation trial as the patient oxygen level decreases to 88- 89% he becomes tachycardic. He will likely need home oxygen. Pulmonary embolism is unlikely to be acute but does need to be treated. He was put on shots, according to family, likely Lovenox, while in the hospital postoperative. he spoken with Radiology who states that she does see the pulmonary embolism on previous CT. However she is concerned with enlarging masses is and pleural effusions and pericardial effusion. [facility] with On[facility] on Monday with Dr. Alvarado. Due to patient's hypoxia with exertion likely causing his symptoms and needing oxygen at home, he will require observation. Hospitalist, Paulina, accepts for observation Discharge Plan Departure Patient Disposition: Admitted as Observation Clinical Impression: Pulmonary embolism, Lung cancer Discharge Date/Time: 03/24/18 21:41 Interventions: ED Discharge Assessment Last Done: 03/24/18 21:41 Admit Date/Time: 03/24/18 21:09 Admit Provider: Kilo Rios
[2018-03-24 19:01] LABS: Add Manual Diff / Slide Review NO; Basophils Absolute Auto 100 /uL (0-100); Eosinophils Absolute Auto 100 /uL (0-450); Eosinophils Percent Auto 0.8 % (2-4); Hematocrit 38.3 % (41-53); Hemoglobin 12.8 g/dL (13.5-17.5); Lymphocytes Absolute Auto 1200 /uL (1100-4500); Lymphocytes Percent Auto 7.9 % (25-40); Mean Corpuscular HGB Conc 33.5 % (30-36); Mean Corpuscular Hemoglobin 29.6 PG (26-34); Mean Corpuscular Volume 88.4 fL (80-100); Monocytes Absolute Auto 1000 /uL (0-900); Monocytes Percent Auto 6.7 % (3-14); Neutrophils Absolute Auto 12600 /uL (1500-7000); Neutrophils Percent Auto 83.6 % (50-75); Platelet Count 552 X10^3/uL (150-400); Red Blood Cell Count 4.33 X10^6/uL (4.5-5.9); Red Cell Distribution Width 15.2 % (11.6-14.8)
[2018-03-24] MEDS: ALBUTEROL/IPRATROPIUM 3 ML AMPUL INH (19:06)
[2018-03-24 19:17] LABS: Alanine Aminotransferase 19 IU/L (21-72); Albumin 3.4 g/dL (3.5-5.0); Albumin Globulin Ratio 1.1 (1.0-2.8); Alkaline Phosphatase 79 U/L (38-126); Aspartate Aminotransferase 23 IU/L (17-59); BUN Creatinine Ratio 16.3 (6-22); Bilirubin Total 1.2 mg/dL (0.2-1.3); Blood Urea Nitrogen 26 mg/dL (9-20); Calcium 10.8 mg/dL (8.4-10.2); Carbon Dioxide 23 mmol/L (22-32); Chloride 97 mmol/L (98-107); Creatine Kinase < 20 U/L (55-170); Estimated Glomerular Filt Rate 42.1 mL/min (>60); Glucose 137 mg/dL (80-110); HEMOLYSIS < 15 (0-50); Magnesium 1.5 mg/dL (1.6-2.3); Potassium 4.5 mmol/L (3.4-5.1); Sodium 134 mmol/L (137-145); Total Protein 6.4 g/dL (6.3-8.2)
[2018-03-24 19:23] LABS: B Type Natriuretic Peptide 250 (<100)
[2018-03-24] MEDS: SODIUM CHLORIDE 0.9% 1,000 ML 150 ML IV (19:24)
[2018-03-24 19:37] LABS: INR 1.2 (0.9-1.3); Prothrombin Time 13.4 SECONDS (10.1-12.7)
[2018-03-24 19:40] LABS: PTT Partial Thromboplastin Tim 31 SECONDS (26.4-36.2)
[2018-03-24] MEDS: RIVAROXABAN 10 MG TABLET 15 MG PO (21:37)
--- NOTE | 2018-03-24 22:11 | PC.NURSE ---
Addendum entered by Candy Callejas R.N. 03/24/18 22:31: Spouse returned call and med list updated. She was unable to provide health history. States he usually remembers all of that. Original Note: Addendum entered by Candy Callejas R.N. 03/24/18 22:19: left message on spouse phone to call back for med rec update Original Note: Pt admitted to acute care from ER. Transferred via wheelchair, pivot transferred to bed, weakness greater than baseline, currently using walker at home. Alert/oriented to self/date/situation, but cannot remember health history or home med regimen. Will attempt to call spouse to update this. Denies pain. Oriented to room/call light, bed alarm on. Reports usually wears glasses, but they are not here with him.
--- NOTE | 2018-03-24 23:46 | P.HP_ITS ---
History of Present Illness Chief complaint: shortness of breath: Stage IV lung CA. Narrative: The patient is a 78-year-old male presented to the ED on 03/24/2018 with who presented to the ED on 03/24/2018 with dyspnea. Patient reports that earlier in the day he was noted to have respiratory distress, which was pointed out to him by his daughter. Symptom onset is acute, within 24 hr of ED presentation. Associated symptoms include hypoxia and tachypnea. Patient denies pleuritic chest pain, cough, hemoptysis, dizziness/lightheadedness, syncopal events, palpitations, pain and/or swelling of lower extremities. No fever or chills reported. Denies bone pain and myopathy. Dyspnea worsened with exertion and improved with rest. Patient found breathing treatment provided in the ED partially helpful. No prior history of PE, DVT, or thrombosis. Patient was recently diagnosed with Stage IV Lung Cancer. Family history significant for malignancy in mother and daughter (breast cancer). He is awaiting his appointment with Oncology later this month. Recently hospitalized at [facility] for pathologic femur fracture. CTA Chest findings outlined below... - Multiple segmental and subsegmental branches of the right pulmonary artery are narrowed or occluded by the large right hilar mass. - Pulmonary embolus is visualized within 1 of the subsegmental branches of the right lower lobe. - narrowing of the right mainstem and segmental bronchi - small low-density right pleural effusion and compressive atelectasis (similar to prior study) - a 2.3 x 1.6 cm mass with spiculated margins is present in the left lower lobe , increased from previous, 1.5 x 1.1 cm, imaging (03/05/18) - a 5 mm anterior facial nodule w/in the left oblique fissure is re-demonstrated - a speculated mass at the posterior medial left lung base measures 8 mm, suspicious for progression of disease - small low density pericardial effusion, increased in size from prior study - calcified gallstone within the gallbladder fundus - low-density cystic lesion is partially visualized at the upper pole of the left kidney PMH: HTN, hyperuricemia, h/o gout flares, hypothyroidism, OA, pathological femur fracture, lung cancer stage IV (recent dx), PRIOR (remote) h/o tobacco use , CKD (prior h/o ARF 2/2 obstructive uropathy), BPH PSH: Femur fracture repair, TURP FHx: Mother (D), breast cancer; Daughter (A), breast cancer SHx: . Lives with in his own home. Currently works, rinse own business. Former smoker, half a pack per day for 35 years, quit 22 years ago. Denies current use of alcohol. No current or prior history of recreational drug use. Allergies: Shellfish Patient History Medical History Renal failure (Acute) Family & Social History Family History: Reviewed 03/25/18 by TESSY South Social History: household members Spouse Prior Living Arrangements House Safety & Behavioral: Feels Safe in Current Yes Environment Been Physically Hurt or No Threatened By a Person Suicidal Ideation Description None Tobacco & Substance use: Smoking Status Former smoker alcohol intake Rare, occasional use. Denies current use. No known h/o of heavy EtOH dependence. alcohol intake frequency 0-2 / month; holiday/special occasion Substance Use Type Does not use Meds Home Medications Medication Instructions Recorded Confirmed Type allopurinol 100 mg PO DAILY 03/05/18 03/24/18 History atenolol 50 mg PO DAILY 03/05/18 03/24/18 History calcitriol 0.25 mcg PO DAILY 03/05/18 03/24/18 History levothyroxine [Synthroid] 75 mcg PO DAILY 03/05/18 03/24/18 History potassium chloride 20 meq PO DAILY 03/05/18 03/24/18 History aspirin [Adult Low Dose Aspirin] 81 mg PO BID 03/24/18 03/24/18 History tamsulosin 0.4 mg PO BEDTIME 03/24/18 03/24/18 History Allergies Allergy/AdvReac Type Severity Reaction Status Date / Time shellfish derived Allergy Verified 03/24/18 22:27 Review of Systems Review of Systems All systems reviewed & are unremarkable except as noted in HPI and below Exam Vital Signs (past 8 hours): - 03/24/18 18:40 03/24/18 19:06 03/24/18 19:54 Temperature 97.7 F Pulse Rate 98 H 99 H 97 H Respiratory Rate 26 H 21 15 Blood Pressure 149/91 H Blood Pressure [Left Arm] 116/73 Pulse Oximetry 99 99 100 03/24/18 20:30 03/24/18 20:45 03/24/18 21:00 Temperature Pulse Rate 97 H 16 L 117 H Respiratory Rate 16 18 42 H Blood Pressure Blood Pressure [Left Arm] 109/69 109/69 Pulse Oximetry 100 98 89 L 03/24/18 21:41 03/24/18 21:56 Temperature 97.7 F Pulse Rate 95 H 89 Respiratory Rate 37 H 20 Blood Pressure 108/71 124/76 Blood Pressure [Left Arm] Pulse Oximetry 95 95 Oxygen Delivery Method Room Air Narrative Exam Narrative: Constitutional: NAD Neurologic: AOx3, poor short-term memory recall, no unilateral weakness or facial asymmetry No dysarthria or aphasia. Having some difficulty finding words at times. Head: NC, AT Eyes: PERRL, EOMI, no scleral icterus Ears: external ears normal Nose: external nose normal, no epistaxis Throat: dry MM, oropharynx w/o exudate Neck: no masses, lymphadenopathy, or JVD Chest / Respiratory: equal chest rise, audible rales, tachypnea RR22-26 at rest , no dyspnea or accessory muscle use Rales upper lobes, diminished in the bases; on supplemental oxygen, no tenderness to palpation Heart / CV: S1S2, no murmur Abdomen / GI: round, NT, ND, + BS, no organomegaly : no suprapubic tenderness, Dyer catheter present Peripheral / Vascular: warm to touch, DP and PT pulses palpable, no edema, no tenderness, Esmer's negative Musc: full ROM of upper and lower extremities, adequate muscle tone and bulk Skin: Ashen skin tone, no overt areas of ecchymosis noted Objective Labs Result Diagrams: 03/24/18 18:54 03/24/18 18:54 Labs: Laboratory Results - last 24 hr 03/24/18 03/24/18 03/24/18 18:54 18:54 18:54 WBC 15.0 H RBC 4.33 L Hgb 12.8 L Hct 38.3 L MCV 88.4 MCH 29.6 MCHC 33.5 RDW 15.2 H Plt Count 552 H Neut % (Auto) 83.6 H Lymph % (Auto) 7.9 L [place] % (Auto) 6.7 Eos % (Auto) 0.8 L Baso % (Auto) 1.0 Neut # (Auto) 65649 H Lymph # (Auto) 1200 [place] # (Auto) 1000 H Eos # (Auto) 100 Baso # (Auto) 100 PT 13.4 H INR 1.2 APTT 31 Sodium 134 L Potassium 4.5 Chloride 97 L Carbon Dioxide 23 BUN 26 H Creatinine 1.60 H Estimated GFR 42.1 L BUN/Creatinine Ratio 16.3 Glucose 137 H Calcium 10.8 H Magnesium 1.5 L Total Bilirubin 1.2 AST 23 ALT 19 L Alkaline Phosphatase 79 Total Creatine Kinase < 20 L CK-MB (CK-2) TNP CK-MB (CK-2) Rel Index TNP Troponin I 0.060 H B-Natriuretic Peptide 250 H Total Protein 6.4 Albumin 3.4 L Globulin 3.0 Albumin/Globulin Ratio 1.1 Assessment & Plan Plan: Assessment/Plan Narrative: Pulmonary Embolism, subsegmental, w/o acute cor pulminale RF: active malignancy (lung cancer), s/p hip replacement surgery w/o anti- coagulation, diminished mobility, increased age - Telemetry monitoring - Echo in am to assess for right ventricular strain - Start on Eliquis 10 mg PO BID x7 days, then 5 mg BID. Received dose in ED on 03/24 Stage IV Lung Cancer, new diagnosis Awaiting appointment with Oncology. He malignancy appears to be progressing per CT imaging, concern for metastasis Dyspnea Multifactorial, 2/2 pulmonary emboli in and active lung malignancy - Consult pulmonary, eval / treat - Duo-Neb Tx Q6H - IS, supplemental oxygen - Started on Eliquis Hypovolemia Received 1L NS in ED - IVF overnight, BMP in am Elevated Troponin, Trop 0.060 2/2 demand ischemia EKG, 03/24/2018, 1843: SR (v-rate 99), intraventricular conduction delay. Non- ischemic. No chest pain or sx of ACS. Primary dx of PE w/o hemodynamic decompensation, no s/s of cardiac tamponade - Repeat Trop level in am CKD Stage III, sCr 1.6 (baseline unknown) H/O CKD w/prior history of renal failure secondary to obstructive uropathy - trend renal function, optimize blood pressure / perfusion, avoid nephrotoxin agents Hypocalcemia, asymptomatic, Ca 10.8 - IVF - Hold calcitriol Hypomagnesemia, Mg 1.5 - Give 2 gm Mag Sulfate Pericardial Effusion, worsening 2/2 underlying malignancy and potential metastatic spread. No cardiomegaly, fever, or hemodynamic decompensation. - Monitor at this time Anemia of chronic disease, asymptomatic Multifactoria... h/o CKD, malignancy, acute inflammatory state No active s/s of bleeding. - Trend Hgb level Full code. No formal have directive. Designates is the surrogate decision maker. Home medications reviewed and reconciled accordingly. Quality VTE Deep Vein Thrombosis/Pulmonary Embolism Present on Admission: Yes
--- NOTE | 2018-03-25 00:16 | PC.NURSE ---
Baggage And Mail Agent Note: 0000: Awake, resting in bed. Vital signs stable. PICC in place in rt upper arm with dressing cdi. Pt denies pain at this time. He states that he is going home in the morning.
--- NOTE | 2018-03-25 00:59 | PC.NURSE ---
Addendum entered by Aly Darden R.N. 03/25/18 05:29: 0530: Awake, confused about why he is at [facility]. Re-oriented to place, time and situation. Pt recalls that he has an appointment at [facility] on Monday morning but unable to remember who the appointment is with. Original Note: Apprentice Note: 0000: Awake, resting in bed. Vital signs stable. Dyer catheter intact and patent, with brown colored urine. IV in place in rt wrist with NS infusing at 150cc/hr. Placed on telemetry. TESSY Nation at bedside to examine patient.
[2018-03-25 03:46] VITALS: BP 117/73; PULSE 86; RESP 18; TEMP 36.6; O2SAT 96
[2018-03-25] MEDS: SODIUM CHLORIDE 0.9% 1,000 ML 75 ML IV (03:56)
[2018-03-25] MEDS: MAGNESIUM SULFATE 2 GM/50 ML PIGGYBACK IV (04:07)
[2018-03-25 06:15] LABS: Add Manual Diff / Slide Review NO; Basophils Absolute Auto 100 /uL (0-100); Basophils Percent Auto 0.6 % (0-2); Eosinophils Absolute Auto 200 /uL (0-450); Eosinophils Percent Auto 1.5 % (2-4); Hematocrit 35.7 % (41-53); Hemoglobin 11.8 g/dL (13.5-17.5); Lymphocytes Absolute Auto 1200 /uL (1100-4500); Lymphocytes Percent Auto 10.1 % (25-40); Mean Corpuscular Hemoglobin 29.7 PG (26-34); Mean Corpuscular Volume 89.9 fL (80-100); Monocytes Absolute Auto 900 /uL (0-900); Monocytes Percent Auto 7.6 % (3-14); Neutrophils Absolute Auto 9500 /uL (1500-7000); Neutrophils Percent Auto 80.2 % (50-75); Platelet Count 494 X10^3/uL (150-400); Red Blood Cell Count 3.97 X10^6/uL (4.5-5.9); Red Cell Distribution Width 15.3 % (11.6-14.8); White Blood Cell Count 11.9 X10^3/uL (4.5-11.0)
[2018-03-25 06:30] LABS: BUN Creatinine Ratio 16.3 (6-22); Blood Urea Nitrogen 26 mg/dL (9-20); Calcium 10.4 mg/dL (8.4-10.2); Carbon Dioxide 23 mmol/L (22-32); Chloride 101 mmol/L (98-107); Estimated Glomerular Filt Rate 42.1 mL/min (>60); Glucose 116 mg/dL (80-110); HEMOLYSIS < 15 (0-50); Magnesium 2.1 mg/dL (1.6-2.3); Potassium 4.2 mmol/L (3.4-5.1); Sodium 135 mmol/L (137-145)
[2018-03-25 06:39] LABS: Troponin I 0.054 ng/mL (0.01-0.034)
[2018-03-25 07:00] VITALS: BP 127/73; PULSE 81; RESP 15; TEMP 36; O2SAT 100
[2018-03-25 07:03] LABS: Bacteria Urine None Seen
[2018-03-25 07:04] LABS: Appearance Urine UA SL CLOUDY; Bilirubin Urine UA 1+ (NEGATIVE); Glucose Urine UA NEGATIVE (Negative); Ketones Urine UA 1+ (NEGATIVE); Leukocyte Esterase Urine UA TRACE (NEGATIVE); Nitrite Urine UA NEGATIVE (Negative); Occult Blood Urine UA 3+ (Negative); Protein Urine UA 1+ (Negative); Specific Gravity Urine UA 1.015 (1.000-1.035); Urobilinogen Urine UA 0.2 E.U./dL (0.2); pH Urine UA 5.5 (4.5-8.0)
[2018-03-25 07:34] LABS: Color Urine UA Red
[2018-03-25 07:37] LABS: Calcium Oxalate Crystals Urine Occasional; Culture Indicated Urine Cult Not Indicated; Ictotest Urine Negative (Negative); RBC Urine 30-100/HPF (0-5/HPF); Squamous Epithelial Cell Urine 0-1 /HPF; WBC Urine 1-5/HPF (0-5/HPF)
--- NOTE | 2018-03-25 09:00 | PC.NURSE ---
Pt lung sound course, he is 96% on ra. Denies pain at this time. Pt is sad that he has a dx of cancer, mass was found in his lungs. He states I think that I am going to soon, he talked a lot about what he has previously gone through and what is going on with himself now. This RN encouraged pt to rest, which he is napping now with in room visiting.
[2018-03-25] MEDS: ATENOLOL 50 MG TABLET PO (09:21)
[2018-03-25] MEDS: POTASSIUM CHLORIDE 20 MEQ TAB PO (09:21)
[2018-03-25] MEDS: ALLOPURINOL 100 MG TABLET PO (09:22)
[2018-03-25] MEDS: LEVOTHYROXINE 75 MCG TABLET PO (09:22)
[2018-03-25] MEDS: ASPIRIN EC 81 MG TABLET PO (09:22)
[2018-03-25 11:00] VITALS: BP 126/72; PULSE 72; RESP 18; TEMP 36.4; O2SAT 98
--- NOTE | 2018-03-25 12:39 | PM.DS.1 ---
History of Present Illness Chief complaint: shortness of breath: Stage IV lung CA. Narrative: The patient is a 78-year-old male presented to the ED on 03/24/2018 with who presented to the ED on 03/24/2018 with dyspnea. Patient reports that earlier in the day he was noted to have respiratory distress, which was pointed out to him by his daughter. Symptom onset is acute, within 24 hr of ED presentation. Associated symptoms include hypoxia and tachypnea. Patient denies pleuritic chest pain, cough, hemoptysis, dizziness/lightheadedness, syncopal events, palpitations, pain and/or swelling of lower extremities. No fever or chills reported. Denies bone pain and myopathy. Dyspnea worsened with exertion and improved with rest. Patient found breathing treatment provided in the ED partially helpful. No prior history of PE, DVT, or thrombosis. Patient was recently diagnosed with Stage IV Lung Cancer. Family history significant for malignancy in mother and daughter (breast cancer). He is awaiting his appointment with Oncology later this month. Recently hospitalized at [facility] for pathologic femur fracture. CTA Chest findings outlined below... - Multiple segmental and subsegmental branches of the right pulmonary artery are narrowed or occluded by the large right hilar mass. - Pulmonary embolus is visualized within 1 of the subsegmental branches of the right lower lobe. - narrowing of the right mainstem and segmental bronchi - small low-density right pleural effusion and compressive atelectasis (similar to prior study) - a 2.3 x 1.6 cm mass with spiculated margins is present in the left lower lobe, increased from previous, 1.5 x 1.1 cm, imaging (03/05/18) - a 5 mm anterior facial nodule w/in the left oblique fissure is re-demonstrated - a speculated mass at the posterior medial left lung base measures 8 mm, suspicious for progression of disease - small low density pericardial effusion, increased in size from prior study - calcified gallstone within the gallbladder fundus - low-density cystic lesion is partially visualized at the upper pole of the left kidney PMH: HTN, hyperuricemia, h/o gout flares, hypothyroidism, OA, pathological femur fracture, lung cancer stage IV (recent dx), PRIOR (remote) h/o tobacco use, CKD (prior h/o ARF 2/2 obstructive uropathy), BPH PSH: Femur fracture repair, TURP FHx: Mother (D), breast cancer; Daughter (A), breast cancer SHx: . Lives with in his own home. Currently works, rinse own business. Former smoker, half a pack per day for 35 years, quit 22 years ago. Denies current use of alcohol. No current or prior history of recreational drug use. Allergies: Shellfish Discharge Providers Date of admission: 03/24/18 21:09 Primary care physician: TESSY Branham Consults: 03/24/18 18:42 Consult to Respiratory Therapy Evaluate & Treat Comment: Physician Instructions: Evaluate and treat 03/24/18 22:02 Consult to Dietitian, Adult Routine Comment: Reason For Exam: weight loss and minimal appetite Consult to Elephant Keeper Routine Comment: assess resources available 03/25/18 01:54 Consult to Respiratory Therapy Evaluate & Treat Comment: Physician Instructions: Evaluate and treat Discharge provider: Davi Nevarez MD Discharge Date: 03/25/18 Summary Discharge Diagnosis: 1. Dyspnea secondary to lung malignancy 2. Chronic single subsegmental pulmonary embolus in right lower lobe, not causing symptoms 3. Stage IV lung cancer, recent diagnosis 4. Acute urinary retention, present on admission, postop complication of hip fracture repair at outside hospital 5. Gross hematuria, acute, complication of anticoagulant administered in the ER 6. Small pericardial effusion, likely malignancy related, not causing hemodynamic compromise Hospital Course: Patient was admitted for overnight observation. He remained hemodynamically stable, afebrile, O2 sats 90-99% on room air. He does desaturate to 88-89% with ambulation. There is concern about the single subsegmental PE in the right lower lobe which on retrospect was present on his prior CT from 03/05/2018. I doubt this is causing him any compromise or whether it really requires anticoagulation treatment. Further anticoagulant therapy withheld due to risk of intrapulmonary hemorrhage due to high tumor burden in his lungs as well as gross hematuria which developed after he got dose of Eliquis in the ED. He is already taking low-dose daily aspirin postop his hip replacement at [facility] which was for pathological fracture leading to diagnosis of the metastatic lung cancer. Of note, he was discharged from [facility] with a Dyer catheter due to urinary retention, had urology follow-up, had bladder emptying test and determine to still require a catheter. Patient has mild bilateral wheezing on exam and I have started him on 5 day course of prednisone to see if it helps with his breathing. He has new patient oncology appointment tomorrow in [place] with Dr. Alvarado. I recommended patient and spouse to review with if he truly needs anticoagulant therapy for this incidental subsegmental pulmonary embolism. Also on CT there was noted a small pericardial effusion which does not appear to cause any septal bowing of the interventricular septum or any compromise on patient's blood pressure. Exam Vital Signs (past 8 hours): - 03/25/18 07:00 03/25/18 11:00 Temperature 96.8 F L 97.5 F L Pulse Rate 81 72 Respiratory Rate 15 18 Blood Pressure 127/73 126/72 Pulse Oximetry 100 98 Oxygen Delivery Method Room Air Oxygen Flow Rate 0 Objective Labs Result Diagrams: 03/25/18 06:00 03/25/18 06:00 Labs: Laboratory Results - last 24 hr 03/24/18 03/24/18 03/24/18 18:54 18:54 18:54 WBC 15.0 H RBC 4.33 L Hgb 12.8 L Hct 38.3 L MCV 88.4 MCH 29.6 MCHC 33.5 RDW 15.2 H Plt Count 552 H Neut % (Auto) 83.6 H Lymph % (Auto) 7.9 L [place] % (Auto) 6.7 Eos % (Auto) 0.8 L Baso % (Auto) 1.0 Neut # (Auto) 55314 H Lymph # (Auto) 1200 [place] # (Auto) 1000 H Eos # (Auto) 100 Baso # (Auto) 100 PT 13.4 H INR 1.2 APTT 31 Sodium 134 L Potassium 4.5 Chloride 97 L Carbon Dioxide 23 BUN 26 H Creatinine 1.60 H Estimated GFR 42.1 L BUN/Creatinine Ratio 16.3 Glucose 137 H Calcium 10.8 H Magnesium 1.5 L Total Bilirubin 1.2 AST 23 ALT 19 L Alkaline Phosphatase 79 Total Creatine Kinase < 20 L CK-MB (CK-2) TNP CK-MB (CK-2) Rel Index TNP Troponin I 0.060 H B-Natriuretic Peptide 250 H Total Protein 6.4 Albumin 3.4 L Globulin 3.0 Albumin/Globulin Ratio 1.1 Urine Color Urine Appearance Urine pH Ur Specific [place] Urine Protein Urine Glucose (UA) Urine Ketones Urine Occult Blood Urine Nitrate Urine Bilirubin Urine Ictotest Urine Urobilinogen Ur Leukocyte Esterase Urine RBC Urine WBC Ur Squamous Epith Cells Calcium Oxalate Crystal Urine Bacteria Ur Culture Indicated? 03/25/18 03/25/18 03/25/18 06:00 06:00 06:45 WBC 11.9 H RBC 3.97 L Hgb 11.8 L Hct 35.7 L MCV 89.9 MCH 29.7 MCHC 33.0 RDW 15.3 H Plt Count 494 H Neut % (Auto) 80.2 H Lymph % (Auto) 10.1 L [place] % (Auto) 7.6 Eos % (Auto) 1.5 L Baso % (Auto) 0.6 Neut # (Auto) 9500 H Lymph # (Auto) 1200 [place] # (Auto) 900 Eos # (Auto) 200 Baso # (Auto) 100 PT INR APTT Sodium 135 L Potassium 4.2 Chloride 101 Carbon Dioxide 23 BUN 26 H Creatinine 1.60 H Estimated GFR 42.1 L BUN/Creatinine Ratio 16.3 Glucose 116 H Calcium 10.4 H Magnesium 2.1 Total Bilirubin AST ALT Alkaline Phosphatase Total Creatine Kinase CK-MB (CK-2) CK-MB (CK-2) Rel Index Troponin I 0.054 H B-Natriuretic Peptide Total Protein Albumin Globulin Albumin/Globulin Ratio Urine Color Red Urine Appearance Sl cloudy Urine pH 5.5 Ur Specific [place] 1.015 Urine Protein 1+ H Urine Glucose (UA) Negative Urine Ketones 1+ H Urine Occult Blood 3+ H Urine Nitrate Negative Urine Bilirubin 1+ H Urine Ictotest Negative Urine Urobilinogen 0.2 Ur Leukocyte Esterase Trace H Urine RBC 30-100/hpf H Urine WBC 1-5/hpf Ur Squamous Epith Cells 0-1 /hpf Calcium Oxalate Crystal Occasional H Urine Bacteria None seen Ur Culture Indicated? Cult not indicated Discharge Plan Discharge Plan Patient Disposition: Home Discharge Med Rec/Prescriptions Prescriptions: New prednisone 20 mg tablet 40 mg PO DAILY Qty: 10 RF: 0 Continue allopurinol 100 mg Tablet 100 mg PO DAILY RF: 0 levothyroxine [Synthroid] 75 mcg Tablet 75 mcg PO DAILY RF: 0 calcitriol 0.25 mcg Capsule 0.25 mcg PO DAILY RF: 0 potassium chloride 20 mEq Tablet Extended Release 20 meq PO DAILY RF: 0 atenolol 50 mg Tablet 50 mg PO DAILY RF: 0 aspirin [Adult Low Dose Aspirin] 81 mg Tablet,Delayed Release (Dr/Ec) 81 mg PO BID RF: 0 tamsulosin 0.4 mg Capsule 0.4 mg PO BEDTIME RF: 0 Follow up/Referrals: Froylan Alvarado MD [Family Provider] - 1 Day Ynes Agosto ARNP [Primary Care Provider] - Provider Discharge Instructions Diet: Diet as Tolerated Discharge Data Primary Care Provider: Ynes Agosto Attending Provider: Kilo Rios Admit Date/Time: 03/24/18 21:09 Quality VTE Deep Vein Thrombosis/Pulmonary Embolism Present on Admission: Yes
[2018-03-25] MEDS: predniSONE 20 MG TABLET 40 MG PO (12:48)
--- NOTE | 2018-03-25 12:53 | CM.DANOTE ---
Patient is a 78 year old male who was admitted on 03/24/18 for Shortness of Breath. Pt has [facility] for insurance and his PCP is Dr. Agosto. EMR was reviewed. Per , pt with recent Stage IV lung ca dx with upcoming appointment scheduled with Dr. Alvarado at [facility] to determine course of tx and goals of care. Per MD, pt is medically stable to d/c home today with f/u appointment tomorrow with Oncology. SW met bedside with pt and spouse and MD and explained role and they confirmed that pt resides at home in [facility] with his and local adult Dtr. Pt is struggling with new cancer dx and SW discussed support through [facility] Patient Navigator to help with resources and supports. Pt and spouse appreciative and confirm that pt was Independent with ADL's at baseline. They are unsure of future needs pending their appointment with Oncologist and are both agreeable to d/c home today and f/u appointment this week with Oncology. Plan: Patient to d/c home today via spouse POV and no SW needs at this time. KRISTINA Martell Discharge Planning/Care Management Advanced directive, confirm from FAMILY Start: 03/24/18 22:03 Freq: Q24H Status: Active Protocol: Document 03/25/18 00:51 RAC (Rec: 03/25/18 00:51 RAC [id number]) Advance Directive, confirm on record Time 00:50 Person contacted no family at bedside Copy received No CM Discharge Assessment Start: 03/25/18 12:51 Freq: Status: Active Protocol: Document 03/25/18 12:51 BF (Rec: 03/25/18 12:53 BF [id number]) Discharge Planning Assessment Assigned Keeper Helper KRISTINA De Paz Advance Directives? No Advance Directives on File No History Provided By Patient Significant Other Medical Record Has Patient been admitted in last 30 No days? Prior Living Arrangements House Household Members spouse Type of transporation used prior to Drives own vehicle admit Comment Independent at baseline with ADL's Independent with ADL's Yes Is patient alert and oriented? Yes Needs Assistance With Managing Medications Caregiver for Another No Comment Has an appointment to be established with Oncology for recent stage IV lung ca dx Comment Likely home with spouse Barriers to Discharge No Discharge Plan Home Transportation Arrangement Spouse bedside and can provide transport Referrals Initiated None needed Whiteboard Updated in Patient Room with Yes name and ext. # of Keeper Helper Review Status In Process Please Provide Date Initial DC 03/25/18 Assessment Was Performed Next Review Type Continued Stay Review
--- NOTE | 2018-03-26 16:09 | PC.NURSE ---
(Kaur) called today. Pt was sent home yesterday and she was anxious about his care at home. Pt is currently at his oncology appt in [facility]. Pt had been hoping to go to rehab but did not have full care mgt eval while in hospital. Pt currently has no PCP. This is very concerning to . I called [facility] to request urgent primary appt. Left message w/ practice specialist. Called [facility] for further assist and left message.
== END 2018-03-25 14:46 | disposition home or self-care (01) ==
LOC: ED 19:06 → AC 21:10
PROVIDERS: Admitting Provider Nurse Practitioner Gerontology; Emergency Provider Emergency Medicine; PCP Nurse Practitioner Family; Visit Provider Nurse Practitioner Gerontology
DX: I26.99 Other pulmonary embolism without acute cor pulmonale (principal); R06.02 Shortness of breath; C34.91 Malignant neoplasm of unspecified part of right bronchus or lung; E83.51 Hypocalcemia; I31.3 Pericardial effusion (noninflammatory); I10 Essential (primary) hypertension; E03.9 Hypothyroidism, unspecified; N40.0 Benign prostatic hyperplasia without lower urinary tract symptoms; M10.9 Gout, unspecified; Z87.891 Personal history of nicotine dependence; N18.3 Chronic kidney disease, stage 3 (moderate); D63.8 Anemia in other chronic diseases classified elsewhere; E83.42 Hypomagnesemia; R79.89 Other specified abnormal findings of blood chemistry; E86.1 Hypovolemia
CPT/HCPCS: 36415; 36591; 71275; 80048; 80053; 81001; 82550; 83735; 83880; 84484; 85025; 85610; 85730; 93005; 94640; 96360; 96361; 99284; 99285; G0378; Q9967

== ENCOUNTER → 2018-04-06 18:43 | Outpatient (REF) | payer MEDICARE, SELFPAY ==
[2018-03-24 21:50] VITALS: BMI 26.6
[2018-04-06 18:47] LABS: Bacteria Urine None Seen
[2018-04-06 19:21] LABS: Appearance Urine UA CLOUDY; Bilirubin Urine UA 1+ (NEGATIVE); Color Urine UA RED; Glucose Urine UA NEGATIVE (Negative); Ketones Urine UA TRACE (NEGATIVE); Leukocyte Esterase Urine UA TRACE (NEGATIVE); Nitrite Urine UA NEGATIVE (Negative); Occult Blood Urine UA 3+ (Negative); Protein Urine UA 2+ (Negative); Urobilinogen Urine UA 0.2 E.U./dL (0.2); pH Urine UA 5.5 (4.5-8.0)
[2018-04-06 19:51] LABS: RBC Urine >100/HPF (0-5/HPF); Renal Epithelial Cells Urine 1-5/HPF; Squamous Epithelial Cell Urine 0-1 /HPF; Transitional Epi Cells Urine 1-5/HPF (0-5/HPF)
[2018-04-06 19:52] LABS: Calcium Oxalate Crystals Urine Few; Culture Indicated Urine Cult Not Indicated; WBC Urine 1-5/HPF (0-5/HPF)
[2018-04-06 20:44] LABS: Ictotest Urine Negative (Negative)
== END ==
LOC: LAB 18:43
PROVIDERS: PCP Nurse Practitioner Family; Visit Provider Internal Medicine
DX: R33.9 Retention of urine, unspecified (principal)
CPT/HCPCS: 81001